=== PATIENT | female | born 1955 | race Hispanic/Latino ===

== ENCOUNTER 2020-04-12 19:53 | Inpatient (IN) | payer OTHER ==
[~2020-04-12] VITALS: Ht 154.9 cm; Wt 76.2 kg
[2020-04-12] MEDS ORDERED: ONDANSETRON HCL INJ 2MG/ML 2ML 2 MG/ML VIAL IV STA (19:55)
[2020-04-12] MEDS ORDERED: SODIUM CHLORIDE 0.9% 1000ML 1,000 ML IV ONE (20:00)
[2020-04-12 20:11] LABS: BASOPHILS % 0.4 % (0.0-1.0); EOSINOPHILS # (AUTO) 0.1 (0.0-0.4); EOSINOPHILS % 0.8 % (0.0-6.0); HEMATOCRIT 32.6 % (34.2-44.1); HEMOGLOBIN 12.1 g/dL (12.0-16.0); LYMPHOCYTES # (AUTO) 1.3 (1.0-3.2); LYMPHOCYTES % 16.8 % (18.0-39.1); MEAN CORPUSCULAR HEMOGLOBIN 28.9 pg (28-32); MEAN CORPUSCULAR HGB CONC 37.1 g/dL (31-35); MEAN CORPUSCULAR VOLUME 77.8 fL (81-99); MONOCYTES # (AUTO) 0.8 (0.2-0.8); MONOCYTES % 9.8 % (4.4-11.3); NEUTROPHILS # (AUTO) 5.7 (2.1-6.9); NEUTROPHILS % 71.4 % (38.7-80.0); PLATELET COUNT 373 x10e3/uL (140-360); RED BLOOD COUNT 4.19 x10e6/uL (3.6-5.1); RED CELL DISTRIBUTION WIDTH 12.4 % (11.7-14.4)
[2020-04-12 20:25] LABS: ALANINE AMINOTRANSFERASE 64 IU/L (0-55); ALBUMIN 4.2 g/dL (3.5-5.0); ALBUMIN/GLOBULIN RATIO 1.1 (0.8-2.0); ALKALINE PHOSPHATASE 91 IU/L (40-150); ANION GAP 15.7 mmol/L (8-16); BLOOD UREA NITROGEN < 5 mg/dL (7-26); CALCIUM 9.1 mg/dL (8.4-10.2); CARBON DIOXIDE 24 mmol/L (22-29); CHLORIDE 77 mmol/L (98-107); CREATINE KINASE 582 IU/L (29-168); CREATININE, SERUM 0.69 mg/dL (0.57-1.11); EST GLOMERULAR FILTRATION RATE > 60 ML/MIN (60-); GLUCOSE 108 mg/dL (74-118)
[2020-04-12 20:26] LABS: INR 0.97; PROTHROMBIN TIME 13.4 seconds (11.9-14.5)
[2020-04-12 20:27] LABS: PARTIAL THROMBOPLASTIN TIME 31.1 seconds (23.8-35.5)
[2020-04-12 20:31] LABS: BUN/CREATININE RATIO 7 (6-25)
--- NOTE | 2020-04-12 20:31 | NUR ---
ER MD AND PRIMARY RN NOTIFIED AND AWARE OF CRITICAL LAB VALUES, SODIUM 114 AND POTASSIUM 2.7.
[2020-04-12 20:32] LABS: POTASSIUM 2.7 mmol/L (3.5-5.1); SODIUM 114 mmol/L (136-145)
--- NOTE | 2020-04-12 20:33 | Emergency Department Note ---
History of Present Illnes History of Present Illness Chief Complaint: COVID PUI History of Present Illness This is a 64 year old female stated that she was tested 3x for covid 19 all resulted positive last done on April 08. Per pt. today she woke uncertain if she have syncopal episode at home with vomit next to her called daughter & contacted EMS. Pt was AAOx4, . Historian: [employer]/EMS Arrival Mode: [facility] Onset (how long ago): week(s) (3) Location: WEAK ALL OVER, COUGH Quality: COUGH, N/V ONCE TODAY, STATES WOKE UP WITH VOMIT ON HER, ?SYNCOPE Severity: moderate Onset quality: gradual Duration (how long): week(s) (3) Timing of current episode: constant Progression: waxing and waning Context: Reports recent illness (COVID +) Relieving factors: none Exacerbating factors: none Associated symptoms: Reports cough, Reports fever/chills, Reports loss of appetite, Reports nausea/vomiting, Reports shortness of breath, Reports syncope (UNCERTAIN), Reports weakness Treatments prior to arrival: none Past Medical/Family History Physician Review I have reviewed the patient's past medical and family history. Any updates have been documented here. Past Medical History Recent Fever: No Clinical Suspicion of Infectio: No New/Unexplained Change in Ment: No Past Medical History: None Past Surgical History: None Social History Smoking Cessation: Never Smoker Alcohol Use: None Any Illegal Drug Use: No Family History Family history of heart diseas: No Review of Systems Review of Systems Constitutional: Reports as per HPI EENTM: Reports no symptoms Cardiovascular: Reports no symptoms Respiratory: Reports as per HPI Gastrointestinal: Reports as per HPI Genitourinary: Reports no symptoms Musculoskeletal: Reports no symptoms Integumentary: Reports no symptoms Neurological: Reports as per HPI Psychological: Reports no symptoms Endocrine: Reports no symptoms Hematological/Lymphatic: Reports no symptoms Physical Exam Related Data Allergies: Coded Allergies: No Known Allergies (Unverified , 04/12/20) Triage Vital Signs Vital Signs Date Time Temp Pulse Resp B/P (MAP) Pulse Ox O2 Delivery O2 Flow Rate FiO2 04/12/20 20:10 97.6 69 16 127/75 100 Room Air Vital signs reviewed: Yes Physical Exam CONSTITUTIONAL Constitutional: Present well-developed, Present well-nourished; Absent distressed HENT HENT: Present normocephalic, Present atraumatic, Present oropharynx clear/moist, Present nose normal HENT L/R: Present left ext ear normal, Present right ext ear normal EYES Eyes: Reports PERRL, Reports conjunctivae normal NECK Neck: Present ROM normal PULMONARY Pulmonary: Present effort normal, Present breath sounds normal CARDIOVASCULAR Cardiovascular: Present regular rhythm, Present heart sounds normal, Present capillary refill normal, Present normal rate GASTROINTESTINAL Abdominal: Present soft, Present nontender, Present bowel sounds normal GENITOURINARY Genitourinary: Present exam deferred SKIN Skin: Present warm, Present dry MUSCULOSKELETAL Musculoskeletal: Present ROM normal NEUROLOGICAL Neurological: Present alert, Present oriented x 3, Present no gross motor or sensory deficits PSYCHOLOGICAL Psychological: Present mood/affect normal, Present judgement normal Results Laboratory Laboratory Laboratory Tests Test 04/12/20 21:45 04/12/20 19:57 04/12/20 19:55 Urine Color Straw (YELLOW) Urine Clarity Clear (CLEAR) Urine pH 7.5 (5 - 7) Urine Specific [place] 1.015 (1.010-1.025) Urine Protein Negative (NEGATIVE) Urine Glucose (UA) Negative (NEGATIVE) Urine Ketones 1+ (NEGATIVE) Urine Blood Negative (NEGATIVE) Urine Nitrite Negative (NEGATIVE) Urine Bilirubin Negative (NEGATIVE) Urine Urobilinogen 0.2 mg/dL (0.2 - 1) Urine Leukocyte Esterase Negative (NEGATIVE) Urine RBC 0-5 /HPF (0-5) Urine WBC 0-5 /HPF (0-5) Urine Epithelial Cells Few /LPF (NONE) Urine Bacteria Rare /HPF (NONE) White Blood Count 7.92 x10e3/uL (4.8-10.8) Red Blood Count 4.19 x10e6/uL (3.6-5.1) Hemoglobin 12.1 g/dL (12.0-16.0) Hematocrit 32.6 % (34.2-44.1) Mean Corpuscular Volume 77.8 fL (81-99) Mean Corpuscular Hemoglobin 28.9 pg (28-32) Mean Corpuscular Hemoglobin Concent 37.1 g/dL (31-35) Red Cell Distribution Width 12.4 % (11.7-14.4) Platelet Count 373 x10e3/uL (140-360) Neutrophils (%) (Auto) 71.4 % (38.7-80.0) Lymphocytes (%) (Auto) 16.8 % (18.0-39.1) Monocytes (%) (Auto) 9.8 % (4.4-11.3) Eosinophils (%) (Auto) 0.8 % (0.0-6.0) Basophils (%) (Auto) 0.4 % (0.0-1.0) Neutrophils # (Auto) 5.7 (2.1-6.9) Lymphocytes # (Auto) 1.3 (1.0-3.2) Monocytes # (Auto) 0.8 (0.2-0.8) Eosinophils # (Auto) 0.1 (0.0-0.4) Basophils # (Auto) 0.0 (0.0-0.1) Absolute Immature Granulocyte (auto 0.06 x10e3/uL (0-0.1) Sodium Level 114 mmol/L (136-145) Potassium Level 2.7 mmol/L (3.5-5.1) Chloride Level 77 mmol/L (98-107) Carbon Dioxide Level 24 mmol/L (22-29) Anion Gap 15.7 mmol/L (8-16) Blood Urea Nitrogen < 5 mg/dL (7-26) Creatinine 0.69 mg/dL (0.57-1.11) Estimat Glomerular Filtration Rate > 60 ML/MIN (60-) BUN/Creatinine Ratio 7 (6-25) Glucose Level 108 mg/dL (74-118) Calcium Level 9.1 mg/dL (8.4-10.2) Total Bilirubin 0.5 mg/dL (0.2-1.2) Aspartate Amino Transf (AST/SGOT) 56 IU/L (5-34) Alanine Aminotransferase (ALT/SGPT) 64 IU/L (0-55) Alkaline Phosphatase 91 IU/L (40-150) Creatine Kinase 582 IU/L (29-168) Creatine Kinase MB 4.20 ng/mL (0-5.0) Troponin I 0.005 ng/mL (0-0.300) Total Protein 8.1 g/dL (6.5-8.1) Albumin 4.2 g/dL (3.5-5.0) Globulin 3.9 g/dL (2.3-3.5) Albumin/Globulin Ratio 1.1 (0.8-2.0) Prothrombin Time 13.4 seconds (11.9-14.5) Prothromb Time International Ratio 0.97 Activated Partial Thromboplast Time 31.1 seconds (23.8-35.5) Laboratory Tests Test 04/12/20 19:57 04/12/20 19:55 Lab results reviewed: Yes Imaging Imaging results reviewed: Yes Impressions Procedure: [id number] DX/CHEST SINGLE (PORTABLE) Exam Date: 04/12/20 Exam Time: 2019 REPORT STATUS: Signed EXAMINATION: CHEST SINGLE (PORTABLE) INDICATION: Short of breath, Covid + COMPARISON: None FINDINGS: TUBES and LINES: None. LUNGS: Normal lung volumes. Subtle bilateral infrahilar haziness. PLEURA: No pleural effusion or pneumothorax. HEART AND MEDIASTINUM: The cardiomediastinal silhouette is unremarkable. BONES AND SOFT TISSUES: No acute osseous lesion. Soft tissues are unremarkable. UPPER ABDOMEN: No free air under the diaphragm. IMPRESSION: Subtle bilateral infrahilar haziness can be due to atelectasis or pneumonia. Signed by: Nicko Suresh DO on 04/12/2020 10:02 PM rocedure: [id number] CT/CT BRAIN WO Exam Date: 04/12/20 Exam Time: 2019 REPORT STATUS: Signed EXAMINATION: Head CT without contrast HISTORY: Near syncope, dizziness COMPARISON: None. TECHNIQUE: Helical axial images of the head were obtained. Reformatted coronal and sagittal images from the axial data. Dose modulation, iterative reconstruction, and/or weight based adjustment of the mA/kV was utilized to reduce the radiation dose to as low as reasonably achievable. Image quality: Motion/streaking artifact limits the evaluation of the skull base and posterior cranial fossa. FINDINGS: Parenchyma: 1. A few scattered axial cortical and matter hypodense foci, most likely age-appropriate. Minimal chronic microvascular ischemic changes. 2. No mass or hemorrhage. No CT evidence of acute territorial vascular insult. Extra-axial spaces:No abnormal density. No extra-axial fluid collections Brain volume: Normal for age. Ventricles: No hydrocephalus or displacement. Arteries: No density suggestive of thrombus. Dural sinuses: No abnormal density. Foramen magnum: No mass, Chiari malformation, or basilar invagination. Sella: No obvious mass. Paranasal/mastoid sinuses: Nonspecific near complete opacification of the right maxillary sinus. Otherwise clear. Skull/Scalp: No lytic or blastic lesions. No fractures. IMPRESSION: 1. No acute intracranial abnormalities, particularly no hemorrhage or infarcts. 2. Minimal age related chronic microvascular ischemic changes. 3. Nonspecific opacification of the right maxillary sinus. Signed by: Dr. Giles aLne M.D. on 04/12/2020 8:53 PM Dictated By: GILES LANE MD 52 Transcribed By: HELEN on 04/12/202052 COPY TO: EDU HERNANDEZ MD~ Procedures 12 Lead ECG Interpretation ECG Interpretation : ECG: ECG 1 Nursery Worker: Interpreted by ED physician Date: Apr 12, 2020 Time: 19:46 Rhythm: sinus rhythm Rate: normal BPM: 72 QRS axis: normal ST segments normal: Yes T waves normal: Yes Other findings: no other findings Clinical Impression: normal ECG Assessment & Plan Medical Decision Making MDM PT WITH COVID 19 PRESENTS WITH WEAKNESS, NEW ONSET VOMITING TIMES ONE TODAY, POSSIBLE SYNCOPE)PT WOKE UP WITH VOMIT ON HER). COUGH. OXYGEN SATURATION ON ROOM AIR 100% CBC, CMP, EKG, CARDIAC ENZYMES, CXR, CT BRAIN, UA ORDERED TO EVAL FOR MYOCARDIAL INFARCTION, ARRYTHMIA, ELECTROLYTE ABNORMALITY, DEHYDRATION, INTRACRANIAL ABNORMALITY, PNEUMONIA, UTI NS 1 LITER IV ORDERED ZOFRAN 4 MG IV ORDERED PT FOUND TO HAVE HYPONATREMIA AND HYPOKALEMIA, NS WITH 20 MEW KCL PER LITER ORDERED AT 100 CC/HOUR IV, 40 MEQ KCL PO ORDERED I SPOKE WITH DR MARTINEZ AND DR TOLBERT, ADMIT INPATIENT COVID UNIT ON TELEMETRY Assessment & Plan Final Impression: (1) COVID-19 (2) Hyponatremia (3) Hypokalemia Depart Disposition: ADMITTED Last Vital Signs Date Time Temp Pulse Resp B/P (MAP) Pulse Ox O2 Delivery O2 Flow Rate FiO2 04/12/20 20:10 97.6 69 16 127/75 100 Room Air Medications in the ED Ondansetron HCl 4 mg NOW STAT IV ; Start 04/12/20 at 19:55; Stop 04/12/20 at 19:56; Status UNV Sodium Chloride 1,000 ml @ 999 mls/hr Q1H1M ONCE IV ; Start 04/12/20 at 20:00; Stop 04/12/20 at 21:00 EDU HERNANDEZ MD Apr 12, 2020 20:32
[2020-04-12] MEDS ORDERED: POTASSIUM CHLORIDE 20 MEQ TAB CR PO STA (20:49)
--- NOTE | 2020-04-12 20:57 | Diagnostic Imaging Report ---
EXAMINATION: Head CT without contrast HISTORY: Near syncope, dizziness COMPARISON: None. TECHNIQUE: Helical axial images of the head were obtained. Reformatted coronal and sagittal images from the axial data. Dose modulation, iterative reconstruction, and/or weight based adjustment of the mA/kV was utilized to reduce the radiation dose to as low as reasonably achievable. Image quality: Motion/streaking artifact limits the evaluation of the skull base and posterior cranial fossa. FINDINGS: Parenchyma: 1. A few scattered axial cortical and matter hypodense foci, most likely age-appropriate. Minimal chronic microvascular ischemic changes. 2. No mass or hemorrhage. No CT evidence of acute territorial vascular insult. Extra-axial spaces:No abnormal density. No extra-axial fluid collections Brain volume: Normal for age. Ventricles: No hydrocephalus or displacement. Arteries: No density suggestive of thrombus. Dural sinuses: No abnormal density. Foramen magnum: No mass, Chiari malformation, or basilar invagination. Sella: No obvious mass. Paranasal/mastoid sinuses: Nonspecific near complete opacification of the right maxillary sinus. Otherwise clear. Skull/Scalp: No lytic or blastic lesions. No fractures. IMPRESSION: 1. No acute intracranial abnormalities, particularly no hemorrhage or infarcts. 2. Minimal age related chronic microvascular ischemic changes. 3. Nonspecific opacification of the right maxillary sinus. Signed by: Dr. Sydnie Lane M.D. on 04/12/2020 8:53 PM
[2020-04-12] MEDS ORDERED: POTASSIUM CHLORIDE 20 MEQ TAB CR PO ONE (21:12)
[2020-04-12] MEDS ORDERED: ONDANSETRON HCL INJ 2MG/ML 2ML 2 MG/ML VIAL ONE (21:13)
[2020-04-12] MEDS: KCL 20MEQ/.9 SOD CHL 1,000 ML IV SCH (21:20)
[2020-04-12 21:52] LABS: BILIRUBIN,URINE NEGATIVE (NEGATIVE); CLARITY,URINE CLEAR (CLEAR); COLOR,URINE STRAW (YELLOW); KETONES,URINE 1+ (NEGATIVE); LEUKOCYTE ESTERASE ,URINE NEGATIVE (NEGATIVE); NITRITE,URINE NEGATIVE (NEGATIVE); PROTEIN,URINE DIPSTICK NEGATIVE (NEGATIVE); URINE UROBILINOGEN 0.2 mg/dL (0.2 - 1)
[2020-04-12 22:03] LABS: BACTERIA,URINE RARE /HPF; EPITHELIAL CELLS,URINE FEW /LPF; RBC,URINE 0-5 /HPF (0-5); WBC,URINE (MAN) 0-5 /HPF (0-5)
--- NOTE | 2020-04-12 22:05 | Diagnostic Imaging Report ---
EXAMINATION: CHEST SINGLE (PORTABLE) INDICATION: Short of breath, Covid + COMPARISON: None FINDINGS: TUBES and LINES: None. LUNGS: Normal lung volumes. Subtle bilateral infrahilar haziness. PLEURA: No pleural effusion or pneumothorax. HEART AND MEDIASTINUM: The cardiomediastinal silhouette is unremarkable. BONES AND SOFT TISSUES: No acute osseous lesion. Soft tissues are unremarkable. UPPER ABDOMEN: No free air under the diaphragm. IMPRESSION: Subtle bilateral infrahilar haziness can be due to atelectasis or pneumonia. Signed by: Nicko Suresh DO on 04/12/2020 10:02 PM
[2020-04-12] MEDS ORDERED: ONDANSETRON HCL INJ 2MG/ML 2ML 2 MG/ML VIAL IV PRN (22:45)
[2020-04-12 23:05] VITALS: BP 132/78
[2020-04-12] MEDS ORDERED: AMLODIPINE BESY10 MG PO (23:09)
[2020-04-12] MEDS ORDERED: ASPIRIN81 MG (23:10)
[2020-04-12] MEDS ORDERED: LISINOPRIL-HCT1 EAC1 (23:12)
[2020-04-12] MEDS ORDERED: FLUOXETINE HCL10 MG PO (23:18)
[2020-04-13] VITALS: BP 132/78
[2020-04-13] MEDS: KCL 20MEQ/.9 SOD CHL 1,000 ML IV SCH (00:06)
[2020-04-13] MEDS ORDERED: CETIRIZINE HCL10 M1 PO (01:08)
[2020-04-13 04:00] VITALS: BP 119/78
[2020-04-13 05:04] LABS: ANION GAP 14.5 mmol/L (8-16); BLOOD UREA NITROGEN < 5 mg/dL (7-26); CARBON DIOXIDE 22 mmol/L (22-29); CHLORIDE 93 mmol/L (98-107); CREATININE, SERUM 0.69 mg/dL (0.57-1.11); EST GLOMERULAR FILTRATION RATE > 60 ML/MIN (60-); GLUCOSE 104 mg/dL (74-118); POTASSIUM 3.5 mmol/L (3.5-5.1); SODIUM 126 mmol/L (136-145)
[2020-04-13 05:15] LABS: BUN/CREATININE RATIO 7 (6-25)
--- NOTE | 2020-04-13 05:53 | NUR ---
H&P cc: Dizziness HPI: 64yoF, PCP , awoke to vomiting. Pt does not have SOB. Here found to have hyponatremia and electrolyte derangement. PMH: HTN, allergic rhinitis, mood d/o PSHx: none Allergies; see emr Fh/SH; ; no cigs meds; see MAR ROS: no f/c/s/D/cp/sob/skin rash/dizziness/vision changes/focal limb weakness v/s; revd PE tired appearing anicteric ns1s2 mod bs soft nt nd no e/t skin dry n. affect labs/meds revd A/P: Hyponatremia- rehydrate with saline; check Na q8; UA negative; VOmiting- antiemetics as needed; Dizziness- rehydrate HTN- hold HCTZ; cont amlodipine Mood d/o- hold SSRI ALlergic rhinitis- cont antihistamine Prop: scd DIpso: PT consult; Na improving; Norm Rodriguez MD, PhD.
[2020-04-13] MEDS ORDERED: ZOLPIDEM TARTRATE 5 MG TAB PO PRN (06:00)
[2020-04-13] MEDS ORDERED: ONDANSETRON HCL INJ 2MG/ML 2ML 2 MG/ML VIAL IV PRN (06:00)
[2020-04-13] MEDS ORDERED: DOCUSATE SODIUM 100 MG CAP PO PRN (06:00)
[2020-04-13] MEDS ORDERED: ACETAMINOPHEN 325 MG TAB PO PRN (06:00)
--- NOTE | 2020-04-13 06:10 | NUR ---
CALLED MD TOLBERT REGARDING CONSULT. LEFT MESSAGE WITH ANSWERING SERVICE.
--- NOTE | 2020-04-13 07:08 | NUR ---
REPORT GIVEN TO DAYSHIFT NURSE. RESTING IN BED. NO ADVERSE SIGNS OR SYMPTOMS. NO SIGNS IV INFILTRATION. BED LOCKED AND IN LOW POSITION. CALL LIGHT WITHIN REACH. BED ALARM ACTIVATED.
[2020-04-13 08:00] VITALS: BP 124/74
[2020-04-13 08:28] VITALS: BP 124/74
[2020-04-13] MEDS ORDERED: AMLODIPINE BESYLATE 10 MG TAB PO SCH (09:00)
[2020-04-13] MEDS ORDERED: NON-FORMULARY MEDICATION (Cetirizine Hcl 10 MG) PO SCH (09:00)
[2020-04-13] MEDS ORDERED: DOXYCYCLINE HYCLATE TABLET 100 MG TAB PO SCH (10:00)
--- NOTE | 2020-04-13 10:58 | Consultation ---
DATE OF CONSULTATION: Pulmonary Consultation HISTORY OF PRESENT ILLNESS: The patient of Dr. Norm Rodriguez, admitted through the emergency room with weakness, cough. Apparently, she wakened, vomit in her mouth and may have aspirated approximately 4 in the afternoon. ALLERGIES: SHE HAS NO KNOWN ALLERGIES. PAST MEDICAL HISTORY: She has a history of hypertension and depression. SOCIAL HISTORY: Recently . recently of COVID-19. She was born in [facility]. Housewife. Nonsmoker. No alcohol use. HOME MEDICATIONS: Had included lisinopril, fluoxetine, sertraline, aspirin, amlodipine, combination of lisinopril and hydrochlorothiazide. PAST SURGICAL HISTORY: No surgical history. FAMILY HISTORY: Positive for diabetes and COVID-19. PHYSICAL EXAMINATION: GENERAL: She is a well-developed white female, in no acute distress, complaining of beeping IV. VITAL SIGNS: Temperature 98, pulse 90, respirations 18, and blood pressure 124/74. HEAD: Normocephalic and atraumatic. NECK: Trachea midline. LUNGS: Clear. HEART: Regular rhythm. ABDOMEN: Nontender. EXTREMITIES: Nonedematous. IMPRESSION: Severe hyponatremia, 114, low sodium, elevated CPK and liver enzymes, hydrochlorothiazide-related hyponatremia, possible aspiration. Sodium is partially corrected. We will discontinue IV fluids at this time. Potassium is in place. We will check thyroid status. Continue to monitor. COVID-19 PCR is pending. Would begin prophylactic anticoagulation. She is afebrile. We will defer antibiotics at this point. Would suspect . Chest x-ray is reported showing vague infiltrates, presumably aspiration, less likely COVID pneumonia. We will await serologic studies in view of normal white count and absence of fever. Thank you for this kind referral. MD SHUBHAM Augustine/MODL /[id number]
--- NOTE | 2020-04-13 10:59 | Diagnostic Imaging Report ---
EXAM: CHEST SINGLE (PORTABLE) DATE: 04/13/2020 10:34 AM INDICATION: Covid-19, cough COMPARISON: 04/12/2020 FINDINGS/IMPRESSION: The trachea is midline. There are mildly prominent interstitial opacities present with a lower lung zone predominance, not significantly changed from the prior examination. Findings are nonspecific but can be seen in the setting of a atypical/viral infectious process. There is no evidence for lobar consolidation, pneumothorax, or significant pleural effusion. The cardiomediastinal silhouette is stable in appearance. No acute osseous abnormality is identified. Signed by: Dr. Rick Rojas MD on 04/13/2020 10:56 AM
[2020-04-13 11:48] VITALS: BP 119/67
[2020-04-13] MEDS ORDERED: ONDANSETRON HCL 4 MG ORAL DISINTEGRATING TAB PO PRN (12:30)
[2020-04-13 12:53] LABS: ANION GAP 16.7 mmol/L (8-16); BLOOD UREA NITROGEN < 5 mg/dL (7-26); CALCIUM 9.7 mg/dL (8.4-10.2); CARBON DIOXIDE 19 mmol/L (22-29); CHLORIDE 98 mmol/L (98-107); CREATININE, SERUM 0.76 mg/dL (0.57-1.11); EST GLOMERULAR FILTRATION RATE > 60 ML/MIN (60-); GLUCOSE 116 mg/dL (74-118); POTASSIUM 3.7 mmol/L (3.5-5.1); SODIUM 130 mmol/L (136-145)
--- NOTE | 2020-04-13 13:12 | NUR ---
Physical therapy screen completed. Patient is able to perform functional mobility/ walking with out assistance. Skilled PT services not indicated at this time. Thank you. Addendum: 04/13/20 at 1314 by Ronan tillman PT Amended: Links added.
[2020-04-13 13:18] LABS: BUN/CREATININE RATIO 7 (6-25)
[2020-04-13 15:35] VITALS: BP 124/68
--- NOTE | 2020-04-13 17:17 | NUR ---
Received discharge order from Dr. Rodriguez after assessed patient. Dr. Rodriguez gave a discharge order and instructions which was called to the daughter and discussed with the patient. Patient and daughter verbalized understanding. Patient's IV was removed and covered with a C/D/I dressing at 1710. Patient given all discharge paperwork. Awaiting patient's family member arrival to wheel her to the front. Addendum: 04/13/20 at 1802 by Chantelle Ferrari RN Patient wheeled to car at 1750. No issues or complaints.
--- NOTE | 2020-04-13 20:05 | Consultation ---
DATE OF CONSULTATION: REASON FOR CONSULTATION: COVID-19. HISTORY OF PRESENT ILLNESS: This patient who is a very pleasant 64-year-old female. She is coming to the hospital because she is feeling weak. She says she is so weak, she could stand up when she came here. She was hypotensive and hyponatremic. She is on some new medication hydrochlorothiazide, but the patient has COVID-19 back on March 04 and she was doing well. She never has shortness of breath or cough. Right now, there is no shortness of breath or cough, or whatsoever. REVIEW OF SYSTEMS: Totally negative. had fatigue when she first came here, but now she is doing better. LABORATORY DATA: When she first came, her sodium was 140, came up to 130; potassium was 2.7, came up to 3.7. Liver enzyme; AST 56 and ALT 64. PAST MEDICAL HISTORY: Hypertension. PAST SURGICAL HISTORY: Denies. ALLERGIES: NKA. SOCIAL HISTORY: There is no smoking, drug abuse, or alcohol abuse. FAMILY HISTORY: Unremarkable. PHYSICAL EXAMINATION: GENERAL: Currently alert, oriented. VITAL SIGNS: Stable, currently afebrile. HEENT: She is not icteric. NECK: Supple. CHEST: Clear. HEART: S1, S2. ABDOMEN: Soft. Bowel sounds present. EXTREMITIES: No edema. SKIN: No rash. IMPRESSION: 1. Hyponatremia, hypokalemia are due to medication. I told her to stop her hydrochlorothiazide. 2. The patient with COVID-19 for 30 days and she is not infectious anymore. The PCR could remain positive for prolonged time. There is no need to recheck the patient, does not need to be on home quarantine anymore. MD GHAZAL Cristobal/MICKEY /[id number]
[2020-04-13] MEDS ORDERED: ENOXAPARIN SOD INJ 40 MG/0.4 ML SYR SC SCH (21:00)
== END 2020-04-13 17:46 | disposition home or self-care (01) | DRG 177 ==
LOC: ER 20:05 → ERHOLD 22:56 → IMCU 23:50
PROVIDERS: ADMIT Internal Medicine; ATTEND Internal Medicine
DX: U07.1 COVID-19 (principal); J12.89 Other viral pneumonia; E87.1 Hypo-osmolality and hyponatremia; E87.6 Hypokalemia; I10 Essential (primary) hypertension; F39 Unspecified mood [affective] disorder; J30.9 Allergic rhinitis, unspecified; Z20.828 Contact with and (suspected) exposure to other viral communicable diseases; T50.2X5A Adverse effect of carbonic-anhydrase inhibitors, benzothiadiazides and other diuretics, initial encounter
CPT/HCPCS: 36415; 70450; 71045; 80048; 80053; 81001; 82550; 82553; 84443; 84484; 85025; 85610; 85730; 93005; 97139; 99284; J2405; J7030; U0002

== ENCOUNTER 2020-08-03 18:30 | Emergency (ER) | payer OTHER ==
[~2020-08-03] VITALS: Ht 154.9 cm; Wt 76.2 kg
[~2020-08-03 18:30] MED LIST: AMLODIPINE BESY10 MG PO; ASPIRIN81 MG; CETIRIZINE HCL10 M1 PO; FLUOXETINE HCL10 MG PO; LISINOPRIL-HCT1 EAC1
--- NOTE | 2020-08-03 19:17 | Emergency Department Note ---
History of Present Illnes History of Present Illness Chief Complaint: General Medicine Complaints History of Present Illness This is a 64 year old female female pt [id number] reports intermittent sob with minimal exertion and burning sensation to left foot, pts daughter states pt "might just want to get checked out because my sister in law has COVID." Pt was COVID + in March,; resp are even and unlabored, O2 sat ra 100% . Historian: Patient, Family Member Arrival Mode: Car Onset (how long ago): day(s) (2) Location: chest Quality: sob Radiation: Reports non-radiation Severity: mild Onset quality: sudden Duration (how long): day(s) (2) Timing of current episode: intermittent Progression: unchanged Chronicity: new Context: Denies recent illness, Denies recent surgery Relieving factors: none Exacerbating factors: movement Associated symptoms: Reports denies other symptoms Past Medical/Family History Physician Review I have reviewed the patient's past medical and family history. Any updates have been documented here. Past Medical History Recent Fever: No Clinical Suspicion of Infectio: No New/Unexplained Change in Ment: No Past Medical History: Hypertension, Hyperlipedemia Other Medical History: Depression Past Surgical History: None Social History Smoking Cessation: Never Smoker Alcohol Use: None Any Illegal Drug Use: No Review of Systems Review of Systems Constitutional: Reports no symptoms EENTM: Reports no symptoms Cardiovascular: Reports no symptoms Respiratory: Reports as per HPI Gastrointestinal: Reports no symptoms Genitourinary: Reports no symptoms Musculoskeletal: Reports no symptoms Integumentary: Reports no symptoms Neurological: Reports no symptoms Psychological: Reports no symptoms Endocrine: Reports no symptoms Hematological/Lymphatic: Reports no symptoms Physical Exam Related Data Allergies: Coded Allergies: No Known Allergies (Unverified , 04/12/20) Triage Vital Signs Vital Signs Date Time Temp Pulse Resp B/P (MAP) Pulse Ox O2 Delivery O2 Flow Rate FiO2 08/03/20 18:50 98.3 91 18 156/96 100 Room Air Vital signs reviewed: Yes Physical Exam CONSTITUTIONAL Constitutional: Present well-developed, Present well-nourished; Absent distressed HENT HENT: Present normocephalic, Present atraumatic, Present oropharynx clear/moist, Present nose normal HENT L/R: Present left ext ear normal, Present right ext ear normal EYES Eyes: Reports PERRL, Reports conjunctivae normal NECK Neck: Present ROM normal PULMONARY Pulmonary: Present effort normal, Present breath sounds normal CARDIOVASCULAR Cardiovascular: Present regular rhythm, Present heart sounds normal, Present capillary refill normal, Present normal rate GASTROINTESTINAL Abdominal: Present soft, Present nontender, Present bowel sounds normal GENITOURINARY Genitourinary: Present exam deferred SKIN Skin: Present warm, Present dry MUSCULOSKELETAL Musculoskeletal: Present ROM normal NEUROLOGICAL Neurological: Present alert, Present oriented x 3, Present no gross motor or sensory deficits PSYCHOLOGICAL Psychological: Present mood/affect normal, Present judgement normal Results Laboratory Laboratory Laboratory Tests Test 08/03/20 19:00 Lab results reviewed: Yes Imaging Imaging results reviewed: Yes Impressions Procedure: [id number] CT/CT CHEST W Exam Date: Exam Time: REPORT STATUS: Signed EXAM: CT Chest WITH contrast 08/03/2020 10:35 PM INDICATION: TO EVAL NODULE SEEN ON CXR COMPARISON: TECHNIQUE: Chest was scanned utilizing a multidetector helical scanner from the lung apex through the level of the adrenal glands with administration of IV contrast. Coronal and sagittal reformations were obtained. Routine protocol was performed. IV CONTRAST: 100 mL of Omnipaque 300 COMPLICATIONS: None FINDINGS: LINES/ TUBES: None. LUNGS AND AIRWAYS: The lungs are unremarkable. Airways are normal. No suspicious pulmonary nodules. Calcific granuloma in the right upper lobe PLEURA: The pleural spaces are clear. HEART AND MEDIASTINUM: The thyroid gland is normal. No mediastinal, hilar or axillary lymphadenopathy. The heart is normal in size. There is no pericardial effusion. UPPER ABDOMEN: Unremarkable. BONES: The visualized bony thorax is within normal limits. SOFT TISSUES: Unremarkable. IMPRESSION: No suspicious pulmonary nodules. No definite CT correlate to chest radiographic findings. Finding may relate to summation artifact Signed by: Michelle Nash MD on 08/03/2020 11:07 PM Dictated By: MICHELLE NASH MD 06 Transcribed By: HELEN on 08/03/202306 COPY TO: EDU HERNANDEZ MD~ Procedure: [id number] DX/CHEST SINGLE (PORTABLE) Exam Date: 08/03/20 Exam Time: 2019 REPORT STATUS: Signed EXAMINATION: CHEST SINGLE (PORTABLE) INDICATION: ^intermittent sob ^[id number] ^2019 COMPARISON: None FINDINGS: TUBES and LINES: None. LUNGS: Normal lung volumes. 1.6 cm left upper lobe nodule. No consolidations. PLEURA: No pleural effusion or pneumothorax. HEART AND MEDIASTINUM: The cardiomediastinal silhouette is unremarkable. BONES AND SOFT TISSUES: No acute osseous lesion. Soft tissues are unremarkable. UPPER ABDOMEN: No free air under the diaphragm. IMPRESSION: 1. 1.6 cm left upper lobe nodule. Recommend further evaluation with CT of the chest. 2. No focal consolidation, pleural effusion or pneumothorax. No pulmonary edema. Signed by: Sally Juan MD on 08/03/2020 9:23 PM Dictated By: SALLY JUAN MD 22 Transcribed By: HELEN on 08/03/202122 COPY TO: EDU HERNANDEZ MD~ Procedures 12 Lead ECG Interpretation ECG Interpretation : ECG: ECG 1 Data Acquisition Technician: Interpreted by ED physician Date: Aug 03, 2020 Time: 19:29 Rhythm: sinus rhythm Rate: normal BPM: 84 QRS axis: normal ST segments normal: Yes T waves normal: Yes Other findings: prolonged QTc interval Clinical Impression: abnormal ECG Assessment & Plan Medical Decision Making MDM pt with intermittent sob for past couple of days with exertion, denies chest pain cbc, cmp, bnp, cardiac enzymes, ekg, cxr ordered to eval for myocardial infarction, pneumonia, pulmonary edema, electrolyte abnormality PT FOUND TO HAVE HYPOKALEMIA POT 40 MEQ PO ORDERED NS WITH 20 MEQ/LITER TIMES 1 LITER IV ORDERED Reassessment Reassessment time: 23:31 Reassessment POTASSIUM NOW 3.9 Assessment & Plan Final Impression: (1) Dyspnea (2) Hypokalemia Depart Disposition: HOME, SELF-CARE Last Vital Signs Date Time Temp Pulse Resp B/P (MAP) Pulse Ox O2 Delivery O2 Flow Rate FiO2 08/03/20 18:50 98.3 91 18 156/96 100 Room Air Home Meds Reported Medications Cetirizine Hcl (CETIRIZINE HCL) 10 Mg Tab.chew, 10 MG PO DAILY 04/13/20 Fluoxetine Hcl (FLUOXETINE HCL) 10 Mg Capsule, 10 MG PO DAILY, #30 CAP 04/12/20 Aspirin (ASPIRIN) 81 Mg Tab.chew 04/12/20 Amlodipine Besylate (AMLODIPINE BESYLATE) 10 Mg Tablet, 10 MG PO DAILY, #30 TAB 04/12/20 EDU HERNANDEZ MD Aug 03, 2020 19:17
[2020-08-03 19:23] LABS: BASOPHILS % 0.3 % (0.0-1.0); EOSINOPHILS # (AUTO) 0.2 (0.0-0.4); EOSINOPHILS % 2.4 % (0.0-6.0); HEMATOCRIT 37.4 % (34.2-44.1); HEMOGLOBIN 12.9 g/dL (12.0-16.0); LYMPHOCYTES # (AUTO) 2.5 (1.0-3.2); LYMPHOCYTES % 25.3 % (18.0-39.1); MEAN CORPUSCULAR HEMOGLOBIN 29.1 pg (28-32); MEAN CORPUSCULAR HGB CONC 34.5 g/dL (31-35); MEAN CORPUSCULAR VOLUME 84.4 fL (81-99); MONOCYTES # (AUTO) 0.6 (0.2-0.8); MONOCYTES % 6.4 % (4.4-11.3); NEUTROPHILS # (AUTO) 6.5 (2.1-6.9); NEUTROPHILS % 65.2 % (38.7-80.0); PLATELET COUNT 420 x10e3/uL (140-360); RED BLOOD COUNT 4.43 x10e6/uL (3.6-5.1); RED CELL DISTRIBUTION WIDTH 12.7 % (11.7-14.4)
[2020-08-03 19:31] LABS: INR 0.92; PROTHROMBIN TIME 12.8 seconds (11.9-14.5)
[2020-08-03 19:32] LABS: PARTIAL THROMBOPLASTIN TIME 29.7 seconds (23.8-35.5)
[2020-08-03 19:39] LABS: ALANINE AMINOTRANSFERASE 28 IU/L (0-55); ALBUMIN 4.6 g/dL (3.5-5.0); ALKALINE PHOSPHATASE 122 IU/L (40-150); ANION GAP 15.7 mmol/L (8-16); BLOOD UREA NITROGEN 14 mg/dL (7-26); BUN/CREATININE RATIO 16 (6-25); CALCIUM 9.8 mg/dL (8.4-10.2); CARBON DIOXIDE 29 mmol/L (22-29); CHLORIDE 98 mmol/L (98-107); CREATINE KINASE 159 IU/L (29-168); CREATININE, SERUM 0.88 mg/dL (0.57-1.11); EST GLOMERULAR FILTRATION RATE > 60 ML/MIN (60-); GLUCOSE 104 mg/dL (74-118); SODIUM 140 mmol/L (136-145)
[2020-08-03 19:46] LABS: CLARITY,URINE CLEAR (CLEAR); COLOR,URINE YELLOW (YELLOW); LEUKOCYTE ESTERASE ,URINE NEGATIVE (NEGATIVE); NITRITE,URINE NEGATIVE (NEGATIVE); PROTEIN,URINE DIPSTICK NEGATIVE (NEGATIVE)
[2020-08-03 19:47] LABS: BACTERIA,URINE RARE /HPF; BILIRUBIN,URINE NEGATIVE (NEGATIVE); EPITHELIAL CELLS,URINE FEW /LPF; KETONES,URINE NEGATIVE (NEGATIVE); RBC,URINE 0-5 /HPF (0-5); URINE UROBILINOGEN 0.2 mg/dL (0.2 - 1); WBC,URINE (MAN) 0-5 /HPF (0-5)
[2020-08-03 19:49] LABS: POTASSIUM 2.7 mmol/L (3.5-5.1)
--- OUTSIDE RECORDS SUMMARY | 2020-08-03 19:54 | XMS REPORT | Continuity of Care Document ---
Author Author [facility] Organization [facility] Address [address] [place] [address] Phone Unavailable Care Team Providers Care Real Estate Sales Supervisor Name Role Phone NO, PCP PCP Unavailable CAMILLA MARTINEZ Attphys Unavailable CAMILLA MARTINEZ Admphys Unavailable Payers Payer Name Policy Type Policy Number Effective Date Expiration Date [id number] 2019 00:00: 00 [facility] Problems Condition Name Condition Details Condition Category Status Onset Date Resolution Date Last Treatment Date Treating Clinician Comments Source Infection due to severe acute respiratory syndrome coronavir us 2 (SARS-CoV-2) Problem Active [facility] Hyponatremia Problem Active [facility] Hypokalemia Problem Active [facility] Allergies, Adverse Reactions, Alerts Allergy Name Allergy Type Status Severity Reaction(s) Onset Date Inacti ve Date Treating Clinician Comments Source No Known Allergies DA Active U 2015-01-21 00:00:00 [facility] Social History Social Habit Start Date Stop Date Quantity Comments Source Sex Ass[birth year] At 1955 00:00:00 1955 00:[birth year]:00 Female [facility] Medications Ordered Medication Name Filled Medication Name Start Date Stop Da te Current Medication? Ordering Clinician Indication Dosage Frequency Signature (SIG) Comments Components Source Amlodipine Besylate Amlodipine Besylate Yes 10 Daily [facility] Aspirin Aspirin Yes [facility] Cetirizine Hcl Cetirizine Hcl Yes 10 Daily [facility] Fluoxetine Hcl Fluoxetine Hcl Yes 10 Daily [facility] Lisinopril/Hydrochlorothiazide (Lisinopril-Hctz 20-25 Mg Tab) 1 Each TABLET Lisinopril/Hydrochlorothiazide (Lisinopril-Hctz 20-25 Mg Tab) 1 Each TABLET 2020-04-13 00:00:00 No [facility] Vital Signs Vital Name Observation Time Observation Value Comments Source Body Temperature 2020-04-13 15:35:00 97.8 [degF] [facility] Weight 2020-04-12 23:05:00 168 [lb_av] [facility] BMI (Body Mass Index) 2020-04-12 23:05:00 31.7 kg/m2 [facility] Procedures Procedure Date / Time Performed Performing Clinician [facility] e Computed tomography of brain without radiopaque contrast 2020-03 00:00:00 [facility] Plan of Care Planned Activity Planned Date Details Comments Source Instructions Hypokalemia [facility] Instructions Hyponatremia [facility] Encounters Start Date/Time End Date/Time [facility] Source 2020-04-12 22:56:00 2020-04-13 17:46:00 Discharged Inpatient 1 CAMILLA MARTINEZ [facility] [id number] [facility] Results Test Description Test Time Test Comments Results Result Comments Source - US ABDOMEN COMPLETE 2020-05-02 08:47:00 Name : EMMANUELLE SHUKLA [facility] : 1955 Age/S: 64 / F [address] Unit #: [id number] Loc: [place] Fer[place] [address] Phys: Berry Kaiser MD Acct: [id number] Dis Date: Status: REG CLI PHONE #: [phone] Exam Date: 05/02/2020 08 FAX #: [phone] Reason: R94.5 EXAMS: CPT CODE: [id number] US ABDOMEN COMPLETE 06489 HISTORY: R94.5. COMPARISON: None available. Location: [facility]. The liver is hyperechogenic demonstrating patchy fibrofatty infiltration which limited evaluation for intrahepatic mass however no discrete lesions. Mild hepatomegaly at 18.5 cm in length. No intra or extrahepatic biliary ductal dilatation. CBD is normal at 2.6 mm. Main portal vein is patent with hepatopedal flow and normal spectral waveform. Gallbladder is without gallstones. No pericholecystic fluid or wall thickening. No ascites. Both kidneys are free from hydronephrosis and calyceal stones. Normal echogenicity and texture. Right kidney measured 11.4 cm in length. Left kidney measured 11 cm in length. Spleen is not enlarged at 13.8 cm in length. Visualized portions of the IVC, aorta and pancreas are normal however imaged incompletely. IMPRESSION: No gallstones. Fibrofatty infiltrated liver with mild hepatomegaly. Unremarkable spleen and kidneys. Lucy ctronically Signed by Hieu Antoine on 05/02/2020 at 0847 Reported and signed by: Ta Antoine M.D. CC: Cesar Reyes MD; Berry Kaiser MD Technologist: CORTNEY OLVERA RDMS [facility] Date/Time: 05/02/2020 (0847) t.SDR.[email or web address] Orig Print D/T: S: 05/02/2020 (0850) Probe: PAGE 1 Signed Report Serum or plasma sodium measurement (moles/volume) 2020-04-13 12:13:00 Test Item Sodium Level (test code = 2951-2) 130 136-145 [facility] potassium measurement (moles/volume)2020-04-13 12:13:00* Test Item Value Reference Range Interpretation Comments Potassium Level (test code = 2823-3) 3.7 3.5-5.1 [facility] or plasma chloride measurement (moles/volume)2020-04-13 12:13:00* Test Item Value Reference Range Interpretation Comments Chloride Level (test code = 2075-0) 98 98-107 [facility]ere[facility] or plasma carbon dioxide, total measurement (moles/volume)2020-04-13 12:13:00* Test Item Value Reference Range Interpretation Comments Carbon Dioxide Level (test code = 2028-9) 19 - [facility] or plasma anion cwv5630-90-52 12:13:00* Test Item Value Reference Range Interpretation Comments Anion Gap (test code = 69427-5) 16.7 8-16 [facility] or plasma urea nitrogen measurement (mass/volume)2020-04-13 12:13:00* Test Item Value Reference Range Interpretation Comments Blood Urea Nitrogen (test code = 3094-0) < 5 7-26 [facility]ere[facility] or plasma creatinine measurement (mass/volume)2020-04-13 12:13:00* Test Item Value Reference Range Interpretation Comments Creatinine (test code = 2160-0) 0.76 0.57-1.11 [facility]ere[facility] or plasma urea nitrogen/creatinine mass qejer0978-05-13 12:13:00* Test Item Value Reference Range Interpretation Comments BUN/Creatinine Ratio (test code = 3097-3) 7 6-25 [facility] CenterEstimated glomerular filtration rate (GFR) hrojrbqqocvtf4501-85-35 12:13:00* Test Item Value Reference Range Interpretation Comments Estimat Glomerular Filtration Rate (test code = 090375429) > 60 >60 Ranges were taken from the National Kidney Disease Education Program and the [facility] Foundation literature.Reference ranges:60 or greater: Bhawzm02-28 ( for 3 consecutive months): Chronic kidney disease 15 or less: Kidney failureConnally Memorial Medical CenterGlucose svyeydbtegu1683-45-22 12:13:00* Test Item Value Reference Range Interpretation Comments Glucose Level (test code = OEO2162) 116 74-118 [facility]ererum or plasma calcium measurement (mass/volume)2020-04-13 12:13:00* Test Item Value Reference Range Interpretation Comments Calcium Level (test code = 47356-1) 9.7 8.4-10.2 [facility] CenterCHE[facility]INGLE (PORTABLE)2020-04-13 10:54:00 [facility] [place] [address] Patient Name: EMMANUELLE SHUKLA MR #: [id number] : 1955 Age/Sex: 64/F Req #: [id number] [facility] Physician: CAMILLA MARTINEZ MD Ordered by: SHAUN SMITH MD Report #: [id number] Location: [facility] Room/Bed: [place] [address] Procedure: [id number] DX/CHEST SINGLE (P ORTABLE) Exam Date: 04/13/20 Exam Time: 1034 REPORT STATUS: Signed EXAM: CHEST SING LE (PORTABLE) DATE: 04/13/2020 10:34 AM INDICATION: Covid-19, cough COMPARISON: 04/12/2020 FINDINGS/IMPRESSION: The trachea is midline. There are mildly prominent interstitial opacities present with a lower lung zo ne predominance, not significantly changed from the prior examination. Finding s are nonspecific but can be seen in the setting of a atypical/viral infectiou s process. There is no evidence for lobar consolidation, pneumothorax, or s ignificant pleural effusion. The cardiomediastinal silhouette is stable in megan earance. No acute osseous abnormality is identified. Signed by: Dr. Rick Rojas MD on 04/13/2020 10:56 AM Dictated By: RICK [facility] Signed By: RICK ROJAS MD on 04/13/20 1056 Transcribed By: HELEN on 105 COPY TO: SHAUN SMITH MD Serum or plasma thyrotropin measurement by detection limit <= 0.005 miu/l (units/volume)2020-04-13 04:08:00 * Test Item Value Reference Range Interpretation Comments Thyroid Stimulating Hormone (TSH) (test code = 81529-4) 0.916 0.350-4.940 [facility] CenterFluoroscopic procedure less than one hour rinuexyz2962-77-62 22:59:00* Test Item Value Reference Range Interpretation Comments Coronavirus (PCR) (test code = Coronavirus (PCR)) DETECTED NOTD ETECTED SARS-COV2/RT-PCRResults are for the detection of SARS-COV-2 RNA. The SARS-COV-2 RNA is generally detectable in nasopharyngeal swab specimens during the acute ph ase of infection. Positive results are indicitive of active infection with SARS- COV-2; clinical correlation with patient history and other diagnostic informatio n is necessary to determine patient infection status. Positive results do not ru le out bacterial infection or co-infection with other viruses. The agent detecte d may not be the definite cause of the disease.The limit of detection for this a ssay is 250 copies/mLThe SARS-CoV-2 test is a rapid, real-time RT-PCR test inten ded for the qualitative detection of nucleic acid from SARS-CoV-2 in nasopharyng eal swab specimen collected from individuals suspected of COVID-19 by their [facility] provider. This test has not been Food and Drug Administration (FDA) clear ed or approved and has been authorized by FDA under an Emergency Use Authorizati on (EUA). This EUA will be effective until the declaration that circumstances ex ist justifying the authorization of the emergency use of in vitro diagnostic vale t for detection and or diagnosis of COVID-19 is terminated under section 564(b) of the Act, or the the EUA is revoked under 564(g) of the ACT.Testing performed by [address] [place], [place] [address]CHEST SINGLE (PORTABLE)2020-04-12 22:01:00 [facility] [address] [place] [address] Patient Name: EMMANUELLE SHUKLA MR #: [id number] : 1955 Age/Sex: 64/F Req #: [id number] Adm Physician: Ordered by: EDU HERNANDEZ MD Report #: [id number] Location: [facility] oom/Bed: Procedure: [id number] DX/CHEST SINGLE (PORTABLE) Exam Date: 04/12/20 Exam Time: 202 0 REPORT STATUS: Signed EXAMINAT ION: CHEST SINGLE (PORTABLE) INDICATION: Short of breath, Covid + COMPARISON: None FINDINGS: TUBES and LINES: None. LUNGS: Normal lung volumes. Subtle bilateral infrahilar haziness. PLE URA: No pleural effusion or pneumothorax. HEART AND MEDIASTINUM: The card iomediastinal silhouette is unremarkable. BONES AND SOFT TISSUES: No a cute osseous lesion. Soft tissues are unremarkable. UPPER ABDOMEN: No fr ee air under the diaphragm. IMPRESSION: Subtle bilateral infrahil ar haziness can be due to atelectasis or pneumonia. Signed by: Nicko youngblood DO on 04/12/2020 10:02 PM Dictated By: NICKO MACEDO DO Electronic ally Signed By: NICKO MACEDO DO on 04/12/202201 Transcribed By: HELEN on 04/12/202201 COPY TO: EDU HERNANDEZ MD Urine color gyjgdfbkazqho3565-61-01 21:45:00* Test Item Value Reference Range Interpretation Comments Urine Color (test code = 5778-6) STRAW YELLOW [facility] CenterUrine dlgygda6841-46-40 21:45:00* Test Item Value Reference Range Interpretation Comments Urine Clarity (test code = 59053-6) CLEAR CLEAR [facility] Centerpecific gravity of Urine by Test strip 2020-04-12 21:45:00* Test Item Value Reference Range Interpretation Comments Urine Specific Nelson (test code = 5811-5) 1.015 1.010-1.02 5 [facility] CenterUrine pH measurement by automated test crwiy9436-30-84 21:45:00* Test Item Value Reference Range Interpretation Comments Urine pH (test code = 12371-5) 7.5 5-7 [facility] CenterUrine leukocyte esterase detection by hzkwcuuw6418-68-98 21:45:00* Test Item Value Reference Range Interpretation Comments Urine Leukocyte Esterase (test code = 5799-2) NEGATIVE NEGATIVE [facility] CenterUrine nitrite lsaznsfng0543-98-69 21:45:00* Test Item Value Reference Range Interpretation Comments Urine Nitrite (test code = 78447-3) NEGATIVE NEGATIVE [facility] CenterUrine protein measurement by test strip (mass/volume)2020-04-12 21:45:00* Test Item Value Reference Range Interpretation Comments Urine Protein (test code = 5804-0) NEGATIVE NEGATIVE [facility] CenterUrine glucose egyfysbyr1325-77-38 21:45:00* Test Item Value Reference Range Interpretation Comments Urine Glucose (UA) (test code = 2349-9) NEGATIVE NEGATIVE [facility] CenterUrine ketones detection by automated test pkypb3707-56-11 21:45:00* Test Item Value Reference Range Interpretation Comments Urine Ketones (test code = 74275-3) 1+ NEGATIVE [facility] CenterUrine urobilinogen measurement by test strip (mass/volume)2020-04-12 21:45:00* Test Item Value Reference Range Interpretation Comments Urine Urobilinogen (test code = 89524-0) 0.2 0.2-1 [facility] CenterUrine total bilirubin measurement (mass/volume)2020-04-12 21:45:00* Test Item Value Reference Range Interpretation Comments Urine Bilirubin (test code = 1978-6) NEGATIVE NEGATIVE [facility] CenterUrine erythrocytes xgvdnmven5250-07-75 21:45:00* Test Item Value Reference Range Interpretation Comments Urine Blood (test code = 46010-6) NEGATIVE NEGATIVE [facility] CenterAutomated urine sediment leukocyte count by microscopy (number/high power field)2020-04-12 21:45:00* Test Item Value Reference Range Interpretation Comments Urine WBC (test code = 5821-4) 0-5 0-5 [facility] CenterErythrocytes detection in urine sediment by light aipocrdadh7967-08-89 21:45:00* Test Item Value Reference Range Interpretation Comments Urine RBC (test code = 24369-7) 0-5 0-5 [facility] CenterBacteria detection in urine sediment by light vvguikjudn3671-83-34 21:45:00* Test Item Value Reference Range Interpretation Comments Urine Bacteria (test code = 47421-1) RARE NONE [facility] CenterEpithelial cells detection in urine sediment by light hbtmvqrqmj8101-71-61 21:45:00* Test Item Value Reference Range Interpretation Comments Urine Epithelial Cells (test code = 67966-4) FEW NONE [facility] CenterCT BRAIN NK3149-83-62 20:50:00 [facility] [address] [place] [address] Patient Name: EMMANUELLE SHUKLA MR #: [id number] : 1955 Age/Sex: 64/F Req #: [id number] Adm Physician: Ordered by: EDU HERNANDEZ MD Report #: [id number] Location: [facility]/Bed: Procedure: [id number] CT/CT BRA IN WO Exam Date: 04/12/20 Exam Time: 2019 REPORT STATUS: Signed EXAMINATION: Head CT without contrast HISTORY: Near syncope, dizziness COMPARISON: None. TE CHNIQUE: Helical axial images of the head were obtained. Reformatted coronal and sagittal images from the axial data. Dose modulation, iterative reconstru ction, and/or weight based adjustment of the mA/kV was utilized to reduce the radiation dose to as low as reasonably achievable. Image quality: Motion/strea julita artifact limits the evaluation of the skull base and posterior cranial fo ssa. FINDINGS: Parenchyma: 1. A few scattered axial cortical and matter hypodense foci, most likely age-appropriate. Minimal chronic microv ascular ischemic changes. 2. No mass or hemorrhage. No CT evidence of acute t erritorial vascular insult. Extra-axial spaces:No abnormal dens ity. No extra-axial fluid collections Brain volume: Normal for age. Ventricles: No hydrocephalus or displacement. Arteries: No density suggestive of thrombus. Dural sinuses: No abnormal density. Fora men magnum: No mass, Chiari malformation, or basilar invagination. Sella : No obvious mass. Paranasal/mastoid sinuses: Nonspecific near complete opacification of the right maxillary sinus. Otherwise clear. Skull/Sc alp: No lytic or blastic lesions. No fractures. IMPRESSION: 1. No a cute intracranial abnormalities, particularly no hemorrhage or infarcts. 2. Minimal age related chronic microvascular ischemic changes. 3. Nonspec ific opacification of the right maxillary sinus. Signed by: Dr. Giles Lane M.D. on 04/12/2020 8:53 PM Dictated By: GILES LANE MD Electronically S igned By: GILES LANE MD on 04/12/202052 Transcribed By: HELEN on 04/12/20 2 053 COPY TO: EDU HERNANDEZ MD Blood leukocytes automated count (number/volume)2020-04-12 19:57:00* Test Item Value Reference Range Interpretation Comments White Blood Count (test code = 6690-2) 7.92 4.8-10.8 [facility] CenterBlood erythrocytes automated count (number/volume)2020-04-12 19:57:00* Test Item Value Reference Range Interpretation Comments Red Blood Count (test code = 789-8) 4.19 3.6-5.1 [facility] CenterBlood hemoglobin measurement (moles/volume)2020-04-12 19:57:00* Test Item Value Reference Range Interpretation Comments Hemoglobin (test code = 19737-4) 12.1 12.0-16.0 [facility] CenterAutomated blood hematocrit (volume fraction)2020-04-12 19:57:00* Test Item Value Reference Range Interpretation Comments Hematocrit (test code = 4544-3) 32.6 34.2-44.1 [facility] CenterAutomated erythrocyte mean corpuscular mrhjht7636-36-92 19:57:00* Test Item Value Reference Range Interpretation Comments Mean Corpuscular Volume (test code = 787-2) 77.8 81-99 [facility] CenterAutomated erythrocyte mean corpuscular hemoglobin (mass per erythrocyte)2020-04-12 19:57:00* Test Item Value Reference Range Interpretation Comments Mean Corpuscular Hemoglobin (test code = 785-6) 28.9 28-32 [facility] CenterAutomated erythrocyte mean corpuscular hemoglobin concentration measurement (mass/volume)2020-04-12 19:57:00* Test Item Value Reference Range Interpretation Comments Mean Corpuscular Hemoglobin Concent (test code = 786-4) 37.1 31-35 [facility] CenterRDW UxgOh-Mlu0816-67-28 19:57:00* Test Item Value Reference Range Interpretation Comments Red Cell Distribution Width (test code = 85097-7) 12.4 11.7 -14.4 [facility] CenterAutomated blood platelet count (count/volume)2020-04-12 19:57:00* Test Item Value Reference Range Interpretation Comments Platelet Count (test code = 777-3) 373 140-360 [facility] CenterAutomated blood segmented neutrophil count as percentage of total jyvlppccbe4610-79-31 19:57:00* Test Item Value Reference Range Interpretation Comments Neutrophils (%) (Auto) (test code = 52909-8) 71.4 38.7-80.0 [facility] CenterAutomated blood lymphocyte count as percentage ot total rkjlfpncam7082-02-86 19:57:00* Test Item Value Reference Range Interpretation Comments Lymphocytes (%) (Auto) (test code = 736-9) 16.8 18.0-39.1 [facility] CenterAutomated blood monocyte count as percentage of total rlxfkvcqiy4482-39-65 19:57:00* Test Item Value Reference Range Interpretation Comments Monocytes (%) (Auto) (test code = 5905-5) 9.8 4.4-11.3 [facility] CenterAutomated blood eosinophil count as percentage of total vcshxcaisu3185-00-52 19:57:00* Test Item Value Reference Range Interpretation Comments Eosinophils (%) (Auto) (test code = 713-8) 0.8 0.0-6.0 [facility] CenterAutomated blood basophil count as percentage of total bdlfrlrkgo9982-21-23 19:57:00* Test Item Value Reference Range Interpretation Comments Basophils (%) (Auto) (test code = 706-2) 0.4 0.0-1.0 [facility] CenterFluoroscopic procedure less than one hour nxydbhaj3157-34-23 19:57:00* Test Item Value Reference Range Interpretation Comments IM GRANULOCYTES % (test code = IM GRANULOCYTES %) 0.8 0.0- 1.0 [facility] CenterAutomated blood neutrophil count 2020-04-12 19:57:00* Test Item Value Reference Range Interpretation Comments Neutrophils # (Auto) (test code = 751-8) 5.7 2.1-6.9 [facility] CenterBlood lymphocytes count (number/volume) 2020-04-12 19:57:00* Test Item Value Reference Range Interpretation Comments Lymphocytes # (Auto) (test code = 40218-7) 1.3 1.0-3.2 [facility] CenterBlsleepy eye medical center monocytes automated count (number/volume)2020-04-12 19:57:00* Test Item Value Reference Range Interpretation Comments Monocytes # (Auto) (test code = 742-7) 0.8 0.2-0.8 [facility] CenterAutomated blood eosinophil count 2020-04-12 19:57:00* Test Item Value Reference Range Interpretation Comments Eosinophils # (Auto) (test code = 711-2) 0.1 0.0-0.4 [facility] CenterAutomated blood basophil count (count/volume)2020-04-12 19:57:00* Test Item Value Reference Range Interpretation Comments Basophils # (Auto) (test code = 704-7) 0.0 0.0-0.1 [facility] CenterFluoroscopic procedure less than one hour crocutcv6061-26-95 19:57:00* Test Item Value Reference Range Interpretation Comments Absolute Immature Granulocyte (auto (vale t code = Absolute Immature Granulocyte (auto) 0.06 0-0.1 [facility] Centererum or plasma total bilirubin measurement (mass/volume)2020-04-12 19:57:00* Test Item Value Reference Range Interpretation Comments Total Bilirubin (test code = 1975-2) 0.5 0.2-1.2 [facility] CenterFluoroscopic procedure less than one hour kpwkmtgw0553-21-03 19:57:00* Test Item Value Reference Range Interpretation Comments Aspartate Amino Transf (AST/SGOT) (test code = Aspartate Amino Transf (AST/SGOT)) 56 5-34 [facility] Centererum or plasma alanine aminotransferase measurement (enzymatic activity/volume)2020-04-12 19:57:00* Test Item Value Reference Range Interpretation Comments Alanine Aminotransferase (ALT/SGPT) (test code = 1742-6) 64 0-55 [facility] Centererum or plasma protein measurement (mass/volume)2020-04-12 19:57:00* Test Item Value Reference Range Interpretation Comments Total Protein (test code = 2885-2) 8.1 6.5-8.1 [facility] Centererum or plasma albumin measurement (mass/volume)2020-04-12 19:57:00* Test Item Value Reference Range Interpretation Comments Albumin (test code = 1751-7) 4.2 3.5-5.0 [facility] CenterPlasma globulin measurement (mass/volume) 2020-04-12 19:57:00* Test Item Value Reference Range Interpretation Comments Globulin (test code = 68689-0) 3.9 2.3-3.5 [facility] Centererum or plasma albumin/globulin mass mvgpq8895-18-32 19:57:00* Test Item Value Reference Range Interpretation Comments Albumin/Globulin Ratio (test code = 1759-0) 1.1 0.8-2.0 [facility] Centererum or plasma alkaline phosphatase measurement (enzymatic activity/volume)2020-04-12 19:57:00* Test Item Value Reference Range Interpretation Comments Alkaline Phosphatase (test code = 6768-6) 91 40-150 [facility] Centererum or plasma creatine kinase measurement (enzymatic activity/volume)2020-04-12 19:57:00* Test Item Value Reference Range Interpretation Comments Creatine Kinase (test code = 2157-6) 582 29168 [facility] Centererum or plasma creatine kinase MB measurement (mass/volume)2020-04-12 19:57:00* Test Item Value Reference Range Interpretation Comments Creatine Kinase MB (test code = 37741-3) 4.20 0-5.0 [facility] CenterTroponin I measurement by highly sensitive enzyme jzbgvsvxgmb5516-26-51 19:57:00* Test Item Value Reference Range Interpretation Comments Troponin I (test code = 64686-7) 0.005 0-0.300 [facility] CenterProthrombin time (PT) in platelet poor plasma by coagulation jhiac7439-81-17 19:55:00* Test Item Value Reference Range Interpretation Comments Prothrombin Time (test code = 5902-2) 13.4 11.9-14.5 [facility] by Coagulation [id number] 19:55:00* Test Item Value Reference Range Interpretation Comments Prothromb Time International Ratio (test code = 6301-6) 0.97 Oral Anticoagulant Therapy INR Values:1. Low Intensity Therapy 1.5 - 2.02 . Moderate Intensity Therapy 2.0 - 3.03. High Intensity Therapy(1) 2.5 - 3. 54. High Intensity Therapy(2) 3.0 - 4.05. Panic Value INR > 5.0 [facility] CenterAct[facility] partial thromboplastin time (aPTT) in platelet poor plasma by coagulation [id number] 19:55:00* Test Item Value Reference Range Interpretation Comments Activated Partial Thromboplast Time (test code = 86544-9) 31.1 23.8-35.5 [facility]
--- NOTE | 2020-08-03 19:55 | NUR ---
dr trujillo informed of k+ level 2.7.
[2020-08-03] MEDS ORDERED: POTASSIUM CHLORIDE 20 MEQ TAB CR PO STA (20:07)
[2020-08-03] MEDS ORDERED: POTASSIUM CHLORIDE 20MEQ/15ML UDC PO ONE (20:15)
[2020-08-03] MEDS ORDERED: KCL 20MEQ/.9 SOD CHL 1,000 ML IV ONE ×2 (20:15→20:18)
[2020-08-03] MEDS ORDERED: POTASSIUM CHLORIDE 20MEQ/15ML UDC ONE (20:18)
--- NOTE | 2020-08-03 21:26 | Diagnostic Imaging Report ---
EXAMINATION: CHEST SINGLE (PORTABLE) INDICATION: ^intermittent sob ^[id number] ^2019 COMPARISON: None FINDINGS: TUBES and LINES: None. LUNGS: Normal lung volumes. 1.6 cm left upper lobe nodule. No consolidations. PLEURA: No pleural effusion or pneumothorax. HEART AND MEDIASTINUM: The cardiomediastinal silhouette is unremarkable. BONES AND SOFT TISSUES: No acute osseous lesion. Soft tissues are unremarkable. UPPER ABDOMEN: No free air under the diaphragm. IMPRESSION: 1. 1.6 cm left upper lobe nodule. Recommend further evaluation with CT of the chest. 2. No focal consolidation, pleural effusion or pneumothorax. No pulmonary edema. Signed by: Jose Gabriel MD on 08/03/2020 9:23 PM
[2020-08-03] MEDS ORDERED: SODIUM CHLORIDE 0.9% 50ML 50 ML ONE (23:07)
[2020-08-03] MEDS ORDERED: IOPAMIDOL 370 MG/ML 200 ML INFUS..BTL INJ ONE (23:07)
--- NOTE | 2020-08-03 23:10 | Diagnostic Imaging Report ---
EXAM: CT Chest WITH contrast 08/03/2020 10:35 PM INDICATION: TO EVAL NODULE SEEN ON CXR COMPARISON: TECHNIQUE: Chest was scanned utilizing a multidetector helical scanner from the lung apex through the level of the adrenal glands with administration of IV contrast. Coronal and sagittal reformations were obtained. Routine protocol was performed. IV CONTRAST: 100 mL of Omnipaque 300 COMPLICATIONS: None FINDINGS: LINES/ TUBES: None. LUNGS AND AIRWAYS: The lungs are unremarkable. Airways are normal. No suspicious pulmonary nodules. Calcific granuloma in the right upper lobe PLEURA: The pleural spaces are clear. HEART AND MEDIASTINUM: The thyroid gland is normal. No mediastinal, hilar or axillary lymphadenopathy. The heart is normal in size. There is no pericardial effusion. UPPER ABDOMEN: Unremarkable. BONES: The visualized bony thorax is within normal limits. SOFT TISSUES: Unremarkable. IMPRESSION: No suspicious pulmonary nodules. No definite CT correlate to chest radiographic findings. Finding may relate to summation artifact Signed by: Michael Stewart MD on 08/03/2020 11:07 PM
[2020-08-03 23:31] VITALS: BP 106/81
== END 2020-08-04 00:01 | disposition home or self-care (01) ==
LOC: ER 19:51
DX: R06.00 Dyspnea, unspecified (principal); E87.6 Hypokalemia; I10 Essential (primary) hypertension; E78.5 Hyperlipidemia, unspecified; F32.9 Major depressive disorder, single episode, unspecified
CPT/HCPCS: 36415; 71045; 71260; 80053; 81001; 82550; 82553; 83880; 84132; 84484; 85025; 85610; 85730; 93005; 99284; Q9967

== ENCOUNTER 2020-08-09 22:17 | Emergency (ER) | payer OTHER ==
[~2020-08-09] VITALS: Ht 154.9 cm; Wt 76.2 kg
--- OUTSIDE RECORDS SUMMARY | 2020-08-09 22:33 | XMS REPORT | Continuity of Care Document ---
Author Author [facility] Organization [facility] Address [address] [place] [address] Phone Unavailable Care Team Providers Care Acid Etch Operator Name Role Phone Hieu MASON [facility] PCP Jennifer HERNANDEZ Attphys Unavailable CAMILLA MARTINEZ Attphys Unavailable CAMILLA MARTINEZ Admphyanuradha Unavailable Payers Payer Name Policy Type Policy Number Effective Date Expiration Date Anuradha Muhammad [facility] [id number] 2019 00:00: 00 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 Hypokalemia Problem Active [facility] Dyspnea Problem Active [facility] Allergies, Adverse Reactions, Alerts Allergy Name Allergy Type Status Severity Reaction(s) Onset Date Inacti ve Date Treating Clinician Comments Source No Known Allergies DA Active U 2015-01-21 00:00:00 [facility] Social History Social Habit Start Date Stop Date Quantity Comments Source Sex Assigned At 1955 00:00:00 1955 00:00:[address] [facility] Medications Ordered Medication Name Filled Medication Name Start Date Stop Da te Current Medication? Ordering Clinician Indication Dosage Frequency Signature (SIG) Comments Components Source Amlodipine Besylate Amlodipine Besylate Yes 10 Daily [facility] Aspirin Aspirin Yes [facility] Cetirizine Hcl Cetirizine Hcl Yes 10 Daily [facility] Fluoxetine Hcl Fluoxetine Hcl Yes 10 Daily [facility] Lisinopril/Hydrochlorothiazide (Lisinopril-Hctz 20-25 Mg Tab) 1 Each TABLET Lisinopril/Hydrochlorothiazide (Lisinopril-Hctz 20-25 Mg Tab) 1 Each TABLET 2020-04-13 00:00:00 No [facility] Vital Signs Vital Name Observation Time Observation Value Comments Source Body Temperature 2020-08-03 23:31:00 98.4 [degF] [facility] Heart Rate 2020-08-03 23:31:00 84 /min [facility] Respiratory rate 2020-08-03 23:31:00 21 /min [facility] BP Systolic 2020-08-03 23:31:00 106 mm[Hg] [facility] BP Diastolic 2020-08-03 23:31:00 81 mm[Hg] [facility] Oxygen saturation by Pulse oximetry 2020-08-03 23:31:00 100 /min [facility] Weight 2020-08-03 18:50:00 168 [lb_av] [facility] BMI (Body Mass Index) 2020-08-03 18:50:00 31.7 kg/m2 [facility] Body Temperature 2020-04-13 15:35:00 97.8 [degF] [facility] Weight 2020-04-12 23:05:00 168 [lb_av] [facility] BMI (Body Mass Index) 2020-04-12 23:05:00 31.7 kg/m2 [facility] Procedures Procedure Date / Time Performed Performing Clinician [facility] e Computed tomography of chest with contrast 2020-08-03 00:00:00 [facility] Computed tomography of brain without radiopaque contrast 2020-03 00:00:00 [facility] Plan of Care Planned Activity Planned Date Details Comments Source Instructions Dyspnea [facility] Instructions Hypokalemia [facility] Encounters Start Date/Time End Date/Time En[facility] ID Source 2020-04-12 23:56:00 2020-04-13 18:46:00 Discharged Inpatient 1 CAMILLA MARTINEZ [facility] [id number] [facility] Results Test Description Test Time Test Comments Results Result Comments Source Serum or plasma potassium measurement (moles/volume) 2020-07 23:02:00 Test Item Potassium Level (test code = 2823-3) 3.9 mmol/L 3.5-5.1 [facility] [id number] 22:56:00 [facility] : 1955 Sex: F [facility] [address] [place] [address] Patient Name: EMMANUELLE SHUKLA MR #: [id number] : 1955 Age/Sex: 64/F Req #: [id number] Adm Physician: Caitlin amezquita by: EDU HERNANDEZ MD Report #: [id number] Location: ER Room/Bed: Procedure: [id number] CT/CT CHEST W Exam Date: Exam Time: 2234 REPORT STATUS: Signed EXAM: CT Chest WITH contrast 08/03/2020 10:35 PM INDICATION: TO EVAL NODULE SEEN ON CXR COMPARISON: TECHNIQUE: Chest was scanned utilizing a multidetector helical scanner from the lung apex through the level of the adrenal glands with administration of IV contrast. Coronal and sagittal reformations were obtained. Routine protocol was performe d. IV CONTRAST: 100 mL of Omnipaque 300 COMPLICATIONS: None FIN DINGS: LINES/ TUBES: None. LUNGS AND AIRWAYS: The lungs are unremarka ble. Airways are normal. No suspicious pulmonary nodules. Calcific granuloma in the right upper lobe PLEURA: The pleural spaces are clear. HEART AND MEDIASTINUM: The thyroid gland is normal. No mediastinal, hilar or axill aida lymphadenopathy. The heart is normal in size. There is no pericardial eff usion. UPPER ABDOMEN: Unremarkable. BONES: The visualized bony th orax is within normal limits. SOFT TISSUES: Unremarkable. IMPRESSION: No suspicious pulmonary nodules. No definite CT correlate to chest radiograph ic findings. Finding may relate to summation artifact Signed by: Sumit Stewart MD on 08/03/2020 11:07 PM Dictated By: MICHELLE STEWART MD Lucy ctronically Signed By: MICHELLE STEWART MD on 08/03/202306 Transcribed By: YADY Mercado on 08/03/202306 COPY TO: EDU HERNANDEZ MD CHEST SINGLE (PORTABLE)2020-08-03 21:21:00 [facility] : 1955 Sex: F [facility] [address] [place], [place] [address] Patient Name: EMMANUELLE SHUKLA MR #: [id number] : 1955 Age/Sex: 64/F Req #: [id number] Adm Physician: Caitlin turkd by: EDU HERNANDEZ MD Report #: [id number] Location: ER Room/Bed: Procedure: [id number] DX/CHEST SINGLE (PORTABLE) Exam Date: 08/03/20 Exam Time: 2019 REPORT STATUS: Signed EXAMINATION: CHEST SINGLE (PORT ABLE) INDICATION: intermittent sob [id number] CO MPARISON: None FINDINGS: TUBES and LINES: None. LUNGS: Normal lung volumes. 1.6 cm left upper lobe nodule. No consolidations. PLEURA: No pleural effusion or pneumothorax. HEART AND MEDIASTINUM: The cardiomediastinal silhouette is unremarkable. BONES AND SOFT TISSUES: No acute osseous lesion. Soft tissues are unremarkable. UPPER ABDOMEN: No free air under the diaphragm. IMPRESSION: 1. 1.6 cm left uppe r lobe nodule. Recommend further evaluation with CT of the chest. 2. No foc al consolidation, pleural effusion or pneumothorax. No pulmonary edema. Signed by: Sally Juan MD on 08/03/2020 9:23 PM Dictated By: SALLY JUAN MD 22 Transcr ibed By: HELEN on 08/03/202122 COPY TO: EDU HERNANDEZ MD Urine color [id number] 19:03:00* Test Item Value Reference Range Interpretation Comments Urine Color (test code = 5778-6) YELLOW YELLOW [facility] HospitalUrine [id number] 19:03:00* Test Item Value Reference Range Interpretation Comments Urine Clarity (test code = 61143-5) CLEAR CLEAR [facility] Urine by Test strip 2020-08-03 19:03:00* Test Item Value Reference Range Interpretation Comments Urine Specific Norris (test code = 5811-5) 1.020 1.010-1.02 5 [facility] HospitalUrine pH measurement by automated test [id number] 19:03:00* Test Item Value Reference Range Interpretation Comments Urine pH (test code = 42229-8) 7 5-7 [facility] HospitalUrine leukocyte esterase detection by rarpwwpt3581-88-47 19:03:00* Test Item Value Reference Range Interpretation Comments Urine Leukocyte Esterase (test code = 5799-2) NEGATIVE NEGATIVE [facility] HospitalUrine nitrite mstlehvrh6999-93-03 19:03:00* Test Item Value Reference Range Interpretation Comments Urine Nitrite (test code = 24354-5) NEGATIVE NEGATIVE [facility] HospitalUrine protein measurement by test strip (mass/volume)2020-08-03 19:03:00* Test Item Value Reference Range Interpretation Comments Urine Protein (test code = 5804-0) NEGATIVE NEGATIVE [facility] HospitalUrine glucose aalgexghw4678-35-63 19:03:00* Test Item Value Reference Range Interpretation Comments Urine Glucose (UA) (test code = 2349-9) NEGATIVE NEGATIVE [facility] HospitalUrine ketones detection by automated test [id number] 19:03:00* Test Item Value Reference Range Interpretation Comments Urine Ketones (test code = 43441-4) NEGATIVE NEGATIVE [facility] HospitalUrine urobilinogen measurement by test strip (mass/volume)2020-08-03 19:03:00* Test Item Value Reference Range Interpretation Comments Urine Urobilinogen (test code = 73369-4) 0.2 mg/dL 0.2-1 [facility] HospitalUrine total bilirubin measurement (mass/volume)2020-08-03 19:03:00* Test Item Value Reference Range Interpretation Comments Urine Bilirubin (test code = 1978-6) NEGATIVE NEGATIVE [facility] HospitalUrine erythrocytes pjqbzrdlr7506-35-10 19:03:00* Test Item Value Reference Range Interpretation Comments Urine Blood (test code = 59729-5) NEGATIVE NEGATIVE [facility] HospitalAutomated urine sediment leukocyte count by microscopy (number/high power field)2020-08-03 19:03:00* Test Item Value Reference Range Interpretation Comments Urine WBC (test code = 5821-4) 0-5 /[HPF] 0-5 [facility] HospitalErythrocytes detection in urine sediment by light ylpaopzjfg9936-08-59 19:03:00* Test Item Value Reference Range Interpretation Comments Urine RBC (test code = 35061-7) 0-5 /[HPF] 0-5 [facility] HospitalBacteria detection in urine sediment by light qthcwlywps9408-34-94 19:03:00* Test Item Value Reference Range Interpretation Comments Urine Bacteria (test code = 25375-1) RARE /[HPF] NONE [facility] HospitalEpithelial cells detection in urine sediment by light eygpjsivci9192-85-93 19:03:00* Test Item Value Reference Range Interpretation Comments Urine Epithelial Cells (test code = 13735-7) FEW /[LPF] NONE [facility] HospitalBlood leukocytes automated count (number/volume)2020-08-03 19:00:00* Test Item Value Reference Range Interpretation Comments White Blood Count (test code = 6690-2) 9.90 10*3/uL 4.8-10.8 [facility] HospitalBlood erythrocytes automated count (number/volume)2020-08-03 19:00:00* Test Item Value Reference Range Interpretation Comments Red Blood Count (test code = 789-8) 4.43 10*6/mL 3.6-5.1 [facility] HospitalBlood hemoglobin measurement (moles/volume)2020-08-03 19:00:00* Test Item Value Reference Range Interpretation Comments Hemoglobin (test code = 02986-4) 12.9 g/dL 12.0-16.0 [facility] HospitalAutomated blood hematocrit (volume fraction)2020-08-03 19:00:00* Test Item Value Reference Range Interpretation Comments Hematocrit (test code = 4544-3) 37.4 % 34.2-44.1 [facility] HospitalAutomated erythrocyte mean corpuscular [id number] 19:00:00* Test Item Value Reference Range Interpretation Comments Mean Corpuscular Volume (test code = 787-2) 84.4 81-99 [facility] HospitalAutomated erythrocyte mean corpuscular hemoglobin (mass per erythrocyte)2020-08-03 19:00:00* Test Item Value Reference Range Interpretation Comments Mean Corpuscular Hemoglobin (test code = 785-6) 29.1 pg 28-32 [facility] HospitalAutomated erythrocyte mean corpuscular hemoglobin concentration measurement (mass/volume)2020-08-03 19:00:00* Test Item Value Reference Range Interpretation Comments Mean Corpuscular Hemoglobin Concent (test code = 786-4) 34.5 g/dL 31-35 [facility] HospitalRDW IwvYd-Xzf4620-28-18 19:00:00* Test Item Value Reference Range Interpretation Comments Red Cell Distribution Width (test code = 04266-3) 12.7 % 11.7 -14.4 [facility] HospitalAutomated blood platelet count (count/volume)2020-08-03 19:00:00* Test Item Value Reference Range Interpretation Comments Platelet Count (test code = 777-3) 420 10*3/uL 140-360 [facility] HospitalAutomated blood segmented neutrophil count as percentage of total xzjfmcedhl2610-74-31 19:00:00* Test Item Value Reference Range Interpretation Comments Neutrophils (%) (Auto) (test code = 30149-6) 65.2 % 38.7-80.0 [facility] HospitalAutomated blood lymphocyte count as percentage ot total anrjfqvpuj9771-56-36 19:00:00* Test Item Value Reference Range Interpretation Comments Lymphocytes (%) (Auto) (test code = 736-9) 25.3 % 18.0-39.1 [facility] HospitalAutomated blood monocyte count as percentage of total ivtjwqayig4936-40-34 19:00:00* Test Item Value Reference Range Interpretation Comments Monocytes (%) (Auto) (test code = 5905-5) 6.4 % 4.4-11.3 [facility] HospitalAutomated blood eosinophil count as percentage of total uofttkuahx3663-53-15 19:00:00* Test Item Value Reference Range Interpretation Comments Eosinophils (%) (Auto) (test code = 713-8) 2.4 % 0.0-6.0 [facility] HospitalAutomated blood basophil count as percentage of total tkhhymlczl9985-98-43 19:00:00* Test Item Value Reference Range Interpretation Comments Basophils (%) (Auto) (test code = 706-2) 0.3 % 0.0-1.0 [facility] HospitalFluoroscopic procedure less than one hour vlelblix0746-28-82 19:00:00* Test Item Value Reference Range Interpretation Comments IM GRANULOCYTES % (test code = IM GRANULOCYTES %) 0.4 % 0.0- 1.0 [facility] HospitalAutomated blood neutrophil count 2020-08-03 19:00:00* Test Item Value Reference Range Interpretation Comments Neutrophils # (Auto) (test code = 751-8) 6.5 2.1-6.9 [facility] HospitalBlood lymphocytes count (number/volume) 2020-08-03 19:00:00* Test Item Value Reference Range Interpretation Comments Lymphocytes # (Auto) (test code = 64023-2) 2.5 1.0-3.2 [facility] HospitalBlood monocytes automated count (number/volume)2020-08-03 19:00:00* Test Item Value Reference Range Interpretation Comments Monocytes # (Auto) (test code = 742-7) 0.6 0.2-0.8 [facility] HospitalAutomated blood eosinophil count 2020-08-03 19:00:00* Test Item Value Reference Range Interpretation Comments Eosinophils # (Auto) (test code = 711-2) 0.2 0.0-0.4 [facility] HospitalAutomated blood basophil count (count/volume)2020-08-03 19:00:00* Test Item Value Reference Range Interpretation Comments Basophils # (Auto) (test code = 704-7) 0.0 0.0-0.1 [facility] HospitalFluoroscopic procedure less than one hour wjwgoinu4432-17-95 19:00:00* Test Item Value Reference Range Interpretation Comments Absolute Immature Granulocyte (auto (vale t code = Absolute Immature Granulocyte (auto) 0.04 10*3/uL 0-0.1 [facility] HospitalProthrombin time (PT) in platelet poor plasma by coagulation lwntf0518-01-42 19:00:00* Test Item Value Reference Range Interpretation Comments Prothrombin Time (test code = 5902-2) 12.8 s 11.9-14.5 [facility] HospitalINR in Platelet poor plasma by Coagulation vhdaj3478-32-12 19:00:00* Test Item Value Reference Range Interpretation Comments Prothromb Time International Ratio (test code = 6301-6) 0.92 Oral Anticoagulant Therapy INR Values:1. Low Intensity Therapy 1.5 - 2.02 . Moderate Intensity Therapy 2.0 - 3.03. High Intensity Therapy(1) 2.5 - 3. 54. High Intensity Therapy(2) 3.0 - 4.05. Panic Value INR > 5.0 [facility] HospitalActivated partial thromboplastin time (aPTT) in platelet poor plasma by coagulation aacln7387-70-47 19:00:00* Test Item Value Reference Range Interpretation Comments Activated Partial Thromboplast Time (test code = 63243-8) 29.7 s 23.8-35.5 [facility]erum or plasma sodium measurement (moles/volume)2020-08-03 19:00:00* Test Item Value Reference Range Interpretation Comments Sodium Level (test code = 2951-2) 140 mmol/L 136-145 [facility] Hospitalerum or plasma chloride measurement (moles/volume)2020-08-03 19:00:00* Test Item Value Reference Range Interpretation Comments Chloride Level (test code = 2075-0) 98 mmol/L 98-107 [facility] Hospitalerum or plasma carbon dioxide, total measurement (moles/volume)2020-08-03 19:00:00* Test Item Value Reference Range Interpretation Comments Carbon Dioxide Level (test code = 2028-9) 29 mmol/L 22-29 [facility] Hospitalerum or plasma anion ktt2079-77-28 19:00:00* Test Item Value Reference Range Interpretation Comments Anion Gap (test code = 03189-9) 15.7 mmol/L 8-16 [facility] Hospitalerum or plasma urea nitrogen measurement (mass/volume)2020-08-03 19:00:00* Test Item Value Reference Range Interpretation Comments Blood Urea Nitrogen (test code = 3094-0) 14 mg/dL 7- [facility] Hospitalerum or plasma creatinine measurement (mass/volume)2020-08-03 19:00:00* Test Item Value Reference Range Interpretation Comments Creatinine (test code = 2160-0) 0.88 mg/dL 0.57-1.11 [facility] Hospitalerum or plasma urea nitrogen/creatinine mass [id number] 19:00:00* Test Item Value Reference Range Interpretation Comments BUN/Creatinine Ratio (test code = 3097-3) 16 6-25 [facility] HospitalEstimated glomerular filtration rate (GFR) iruilanctjbjl4269-77-35 19:00:00* Test Item Value Reference Range Interpretation Comments Estimat Glomerular Filtration Rate (test code = 195209704) > 60 mL/ min >60 Ranges were taken from the National Kidney Disease Education Program and the [facility] literature.Reference ranges:60 or greater: Zfozdj76-58 ( for 3 consecutive months): Chronic kidney disease 15 or less: Kidney failureUT Southwestern William P. Clements Jr. University HospitalGlucose rycvxzpoksk5819-07-70 19:00:00* Test Item Value Reference Range Interpretation Comments Glucose Level (test code = XZT9272) 104 mg/dL 74-118 [facility] Hospitalerum or plasma calcium measurement (mass/volume)2020-08-03 19:00:00* Test Item Value Reference Range Interpretation Comments Calcium Level (test code = 36483-0) 9.8 mg/dL 8.4-10.2 [facility] Hospitalerum or plasma total bilirubin measurement (mass/volume)2020-08-03 19:00:00* Test Item Value Reference Range Interpretation Comments Total Bilirubin (test code = 1975-2) 0.4 mg/dL 0.2-1.2 [facility] HospitalFluoroscopic procedure less than one hour zexzjgrt5944-43-47 19:00:00* Test Item Value Reference Range Interpretation Comments Aspartate Amino Transf (AST/SGOT) (test code = Aspartate Amino Transf (AST/SGOT)) 27 [IU]/L 5-34 [facility] Hospitalerum or plasma alanine aminotransferase measurement (enzymatic activity/volume)2020-08-03 19:00:00* Test Item Value Reference Range Interpretation Comments Alanine Aminotransferase (ALT/SGPT) (test code = 1742-6) 28 [IU]/L 0-55 [facility] Hospitalerum or plasma protein measurement (mass/volume)2020-08-03 19:00:00* Test Item Value Reference Range Interpretation Comments Total Protein (test code = 2885-2) 9.3 g/dL 6.5-8.1 [facility] Hospitalerum or plasma albumin measurement (mass/volume)2020-08-03 19:00:00* Test Item Value Reference Range Interpretation Comments Albumin (test code = 1751-7) 4.6 g/dL 3.5-5.0 [facility] HospitalPlasma globulin measurement (mass/volume) 2020-08-03 19:00:00* Test Item Value Reference Range Interpretation Comments Globulin (test code = 81870-6) 4.7 g/dL 2.3-3.5 [facility] Hospitalerum or plasma albumin/globulin mass [id number] 19:00:00* Test Item Value Reference Range Interpretation Comments Albumin/Globulin Ratio (test code = 1759-0) 1.0 0.8-2.0 [facility] Hospitalerum or plasma alkaline phosphatase measurement (enzymatic activity/volume)2020-08-03 19:00:00* Test Item Value Reference Range Interpretation Comments Alkaline Phosphatase (test code = 6768-6) 122 [IU]/L 40-150 [facility] HospitalBNP Ssb-vFws9029-91-18 19:00:00* Test Item Value Reference Range Interpretation Comments B-Type Natriuretic Peptide (test code = 19089-7) 14.9 pg/mL 0-100 [facility] Hospitalerum or plasma creatine kinase measurement (enzymatic activity/volume)2020-08-03 19:00:00* Test Item Value Reference Range Interpretation Comments Creatine Kinase (test code = 2157-6) 159 [IU]/L 29-168 [facility] Hospitalerum or plasma creatine kinase MB measurement (mass/volume)2020-08-03 19:00:00* Test Item Value Reference Range Interpretation Comments Creatine Kinase MB (test code = 51490-4) 1.20 ng/mL 0-5.0 [facility] HospitalTroponin I measurement by highly sensitive enzyme cjwdxfvhgwm4850-83-87 19:00:00* Test Item Value Reference Range Interpretation Comments Troponin I (test code = 88262-5) < 0.001 ng/mL 0-0.300 [facility]- [place] ABDOMEN [id number] 08:47:00 Name: EMMANUELLE SHUKLA [facility] : 1955 Age/S: 64 / F [address] [facility]: [id number] Loc: [place] [address] Phys: Berry Mason MD Acct: [id number] Di s Date: Status: REG CLI PHONE #: Exam Date: 05/02/2020 0804 FAX #: Reason: R94.5 EXAMS: CPT CODE: [id number] [place] ABDOMEN CO MPLETE 80808 HISTORY: R94.5. COMPARISON: None available. Location: [facility]. The liver is hyperechogenic demonstrating patchy fibrofatty infiltration which limited evaluation for intrahepatic mass however no discrete lesions. Mil d hepatomegaly at 18.5 cm in length. No intra or extrahepatic bili aida ductal dilatation. CBD is normal at 2.6 mm. Main portal vein is patent with hepatopedal flow and normal spectral waveform. Gallbla dder is without gallstones. No pericholecystic fluid or wall thickening. N o ascites. Both kidneys are free from hydronephrosis and calyceal stones. Normal echogenicity and texture. Right kidney measured 11.4 cm in length. Left kidney measured 11 cm in length. Spleen is not enlarged at 13.8 cm in length. Visualized portions of the IVC, aorta and p ancreas are normal however imaged incompletely. IMPRESSION: No gallstones. Fibrofatty infiltrated liver with mild hepatomegaly . Unremarkable spleen and kidneys. at 0847 Reported and sig marc by: Ta Antoine M.D. CC: Cesar Reyes MD; Berry Mason MD Technologist: CORTNEY OLVERA RDMS [facility] Date/Time: 05/02/2020 (0847) t.[email or web address].[email or web address] Orig Print D/T: S: 05/02/2020 (0850) Probe: PAGE 1 Signed Report Serum or plasma sodium measurement (moles/volume)2020-04-13 12:13:00* Test Item Value Reference Range Interpretation Comments Sodium Level (test code = 2951-2) 130 136-145 [facility] potassium [facility] (moles/volume)2020-04-13 12:13:00* Test Item Value Reference Range Interpretation Comments Potassium Level (test code = 2823-3) 3.7 3.5-5.1 [facility] chloride measurement (moles/volume)2020-04-13 12:13:00* Test Item Value Reference Range Interpretation Comments Chloride Level (test code = 2075-0) 98 98-107 [facility] plasma carbon dioxide, total measurement (moles/volume)2020-04-13 12:13:00* Test Item Value Reference Range Interpretation Comments Carbon Dioxide Level (test code = 2028-9) 19 22-29 [facility] or plasma anion auu9397-47-24 12:13:00* Test Item Value Reference Range Interpretation Comments Anion Gap (test code = 20030-0) 16.7 8-16 [facility] plasma urea nitrogen measurement (mass/volume)2020-04-13 12:13:00* Test Item Value Reference Range Interpretation Comments Blood Urea Nitrogen (test code = 3094-0) < 5 - [facility] creatinine measurement (mass/volume)2020-04-13 12:13:00* Test Item Value Reference Range Interpretation Comments Creatinine (test code = 2160-0) 0.76 0.57-1.11 [facility] plasma urea nitrogen/creatinine mass afwzo5348-78-46 12:13:00* Test Item Value Reference Range Interpretation Comments BUN/Creatinine Ratio (test code = 3097-3) 7 6- [facility] HospitalEstimated glomerular filtration rate (GFR) duxcqvorpncxy6609-60-18 12:13:00* Test Item Value Reference Range Interpretation Comments Estimat Glomerular Filtration Rate (test code = 275161494) > 60 >60 Ranges were taken from the National Kidney Disease Education Program and the [facility] literature.Reference ranges:60 or greater: Selrwn25-63 ( for 3 consecutive months): Chronic kidney disease 15 or less: Kidney failureCH[facility] CenterGlucose yvgyxpppdpg3719-01-13 12:13:00* Test Item Value Reference Range Interpretation Comments Glucose Level (test code = LJY1409) 116 74-118 [facility] plasma calcium measurement (mass/volume)2020-04-13 12:13:00* Test Item Value Reference Range Interpretation Comments Calcium Level (test code = 27418-2) 9.7 8.4-10.2 [facility] HospitalCHEST SINGLE (PORTABLE)2020-04-13 10:54:00 [facility] [address] [address] Patient Name: EMMANUELLE SHUKLA MR #: [id number] : 1955 Age/Sex: 64/F Req #: [id number] Adm Physician: CAMILLA MARTINEZ MD Ordered by: SHAUN SMITH MD Report #: [id number] Location: [facility] Room/Bed: [place] [address] Procedure: [id number] DX/CHEST SINGLE (P ORTABLE) Exam Date: 04/13/20 [...] on 04/13/2020 10:56 AM Dictated By: RICK ROJAS MD [facility] Signed By: RICK ROJAS MD on 04/13/20 105 Transcribed By: HELEN on 105 COPY TO: SHAUN SMITH MD Serum or plasma thyrotropin measurement by detection limit <= 0.005 miu/l (units/volume)2020-04-13 05:08:00 * Test Item Value Reference Range Interpretation Comments Thyroid Stimulating Hormone (TSH) (test code = 37362-1) 0.916 0.350-4.940 [facility] or plasma thyrotropin measurement by detection limit <= 0.005 miu/l (units/volume)2020-04-13 04:08:00* Test Item Value Reference Range Interpretation Comments Thyroid Stimulating Hormone (TSH) (test code = 12624-8) 0.916 0.350-4.940 [facility] HospitalFluoroscopic procedure less than one hour ojsoqted6068-71-32 23:59:00* Test Item Value Reference Range Interpretation Comments [...] from individuals suspected of COVID-[facility]. This test has not been Food [...] under 564(g) of the ACT.Testing performed by [id number] [place], [place] [address]Fluoroscopic procedure less than one hour xmtnqzrt6743-53-86 22:59:00* Test Item Value Reference Range Interpretation [...] from individuals suspected of COVID-19 [facility]. This test has not been Food [...] under 564(g) of the ACT.Testing performed by [address] (PORT[address])2020-04-12 22:01:[address] [address] Patient Name: EMMANUELLE SHUKLA MR #: [id number] : 1955 Age/Sex: 64/F Req #: [id number] Adm Physician: Ordered by: EDU HERNANDEZ MD Report #: [id number] Location: [facility]/Bed: Procedure: [id number] DX/CHEST SINGLE (PORTABLE) Exam Date: 04/12/20 Exam [...] to atelectasis or pneumonia. Signed by: Nicko youngblood, DO on 04/12/2020 10:02 PM Dictated By: NICKO MACEDO DO Electronic ally Signed By: NICKO MACEDO DO on 04/12/202201 Transcribed By: HELEN on 04/12/202201 COPY TO: EDU HERNANDEZ MD Urine color tgegdlhwcznti0765-81-22 21:45:00* Test Item Value Reference Range Interpretation Comments Urine Color (test code = 5778-6) STRAW YELLOW [facility] HospitalUrine prspolu7616-91-52 21:45:00* Test Item Value Reference Range Interpretation Comments Urine Clarity (test code = 39173-9) CLEAR CLEAR [facility]pecific gravity of Urine by Test strip 2020-04-12 21:45:00* Test Item Value Reference Range Interpretation Comments Urine Specific Norris (test code = 5811-5) 1.015 1.010-1.02 5 [facility] HospitalUrine pH measurement by automated test bssze2724-54-31 21:45:00* Test Item Value Reference Range Interpretation Comments Urine pH (test code = 38503-1) 7.5 5-7 [facility] HospitalUrine leukocyte esterase detection by fupymzwb9982-60-96 21:45:00* Test Item Value Reference Range Interpretation Comments Urine Leukocyte Esterase (test code = 5799-2) NEGATIVE NEGATIVE [facility] HospitalUrine nitrite lqzfkrmyb5571-95-70 21:45:00* Test Item Value Reference Range Interpretation Comments Urine Nitrite (test code = 39303-4) NEGATIVE NEGATIVE [facility] HospitalUrine protein measurement by test strip (mass/volume)2020-04-12 21:45:00* Test Item Value Reference Range Interpretation Comments Urine Protein (test code = 5804-0) NEGATIVE NEGATIVE [facility] HospitalUrine glucose dvegqsrmn5465-23-90 21:45:00* Test Item Value Reference Range Interpretation Comments Urine Glucose (UA) (test code = 2349-9) NEGATIVE NEGATIVE [facility] HospitalUrine ketones detection by automated test pifgd9309-60-36 21:45:00* Test Item Value Reference Range Interpretation Comments Urine Ketones (test code = 04385-5) 1+ NEGATIVE [facility] HospitalUrine urobilinogen measurement by test strip (mass/volume)2020-04-12 21:45:00* Test Item Value Reference Range Interpretation Comments Urine Urobilinogen (test code = 23815-6) 0.2 0.2-1 [facility] HospitalUrine total bilirubin measurement (mass/volume)2020-04-12 21:45:00* Test Item Value Reference Range Interpretation Comments Urine Bilirubin (test code = 1978-6) NEGATIVE NEGATIVE [facility] HospitalUrine erythrocytes ipktdbecp3308-42-85 21:45:00* Test Item Value Reference Range Interpretation Comments Urine Blood (test code = 15890-6) NEGATIVE NEGATIVE [facility] HospitalAutomated urine sediment leukocyte count by microscopy (number/high power field)2020-04-12 21:45:00* Test Item Value Reference Range Interpretation Comments Urine WBC (test code = 5821-4) 0-5 0-5 [facility] HospitalErythrocytes detection in urine sediment by light ixgzphmpyt1734-43-56 21:45:00* Test Item Value Reference Range Interpretation Comments Urine RBC (test code = 88600-5) 0-5 0-5 [facility] HospitalBacteria detection in urine sediment by light miwuqroyak4553-62-47 21:45:00* Test Item Value Reference Range Interpretation Comments Urine Bacteria (test code = 55499-1) RARE NONE [facility] HospitalEpithelial cells detection in urine sediment by light ltvuicxbum1635-08-84 21:45:00* Test Item Value Reference Range Interpretation Comments Urine Epithelial Cells (test code = 82096-0) FEW NONE [facility] HospitalCT BRAIN IA6174-95-76 20:50:00 [facility] [address] [place], [place] [id number] Patient Name: EMMANUELLE SHUKLA MR #: [id number] : 1955 Age/Sex: 64/F [facility] #: [id number] Req #: [id number] Adm Physician: Ordered by: EDU HERNANDEZ MD Report #: [id number] Location: [facility]/Bed: Procedure: [id number] CT/CT BRA IN WO Exam Date: 04/12/20 [...] Count (test code = 6690-2) 7.92 4.8-10.8 [facility] HospitalBlood erythrocytes automated count (number/volume)2020-04-12 19:57:00* Test Item Value Reference Range Interpretation Comments Red Blood Count (test code = 789-8) 4.19 3.6-5.1 [facility] HospitalBlood hemoglobin measurement (moles/volume)2020-04-12 19:57:00* Test Item Value Reference Range Interpretation Comments Hemoglobin (test code = 81647-3) 12.1 12.0-16.0 [facility] HospitalAutomated blood hematocrit (volume fraction)2020-04-12 19:57:00* Test Item Value Reference Range Interpretation Comments Hematocrit (test code = 4544-3) 32.6 34.2-44.1 [facility] HospitalAutomated erythrocyte mean corpuscular ptxmjz1278-78-50 19:57:00* Test Item Value Reference Range Interpretation Comments Mean Corpuscular Volume (test code = 787-2) 77.8 81-99 [facility] HospitalAutomated erythrocyte mean corpuscular hemoglobin (mass per erythrocyte)2020-04-12 19:57:00* Test Item Value Reference Range Interpretation Comments Mean Corpuscular Hemoglobin (test code = 785-6) 28.9 28-32 [facility] HospitalAutomated erythrocyte mean corpuscular hemoglobin concentration measurement (mass/volume)2020-04-12 19:57:00* Test Item Value Reference Range Interpretation Comments Mean Corpuscular Hemoglobin Concent (test code = 786-4) 37.1 31-35 [facility] HospitalRDW IqiSs-Ima9843-95-28 19:57:00* Test Item Value Reference Range Interpretation Comments Red Cell Distribution Width (test code = 23806-3) 12.4 11.7 -14.4 [facility] HospitalAutomated blood platelet count (count/volume)2020-04-12 19:57:00* Test Item Value Reference Range Interpretation Comments Platelet Count (test code = 777-3) 373 140-360 [facility] HospitalAutomated blood segmented neutrophil count as percentage of total exjrmajyxo9771-72-86 19:57:00* Test Item Value Reference Range Interpretation Comments Neutrophils (%) (Auto) (test code = 48568-2) 71.4 38.7-80.0 [facility] blood lymphocyte count as percentage ot total mscsybokdi0914-51-36 19:57:00* Test Item Value Reference Range Interpretation Comments Lymphocytes (%) (Auto) (test code = 736-9) 16.8 18.0-39.1 [facility] HospitalAutomated blood monocyte count as percentage of total iriezbkgpd6759-64-65 19:57:00* Test Item Value Reference Range Interpretation Comments Monocytes (%) (Auto) (test code = 5905-5) 9.8 4.4-11.3 [facility] HospitalAutomated blood eosinophil count as percentage of total mkobrslurl0046-32-47 19:57:00* Test Item Value Reference Range Interpretation Comments Eosinophils (%) (Auto) (test code = 713-8) 0.8 0.0-6.0 [facility] HospitalAutomated blood basophil count as percentage of total cbhhdsuqxk3123-39-69 19:57:00* Test Item Value Reference Range Interpretation Comments Basophils (%) (Auto) (test code = 706-2) 0.4 0.0-1.0 [facility] HospitalFluoroscopic procedure less than one hour kkmtkugk1922-85-80 19:57:00* Test Item Value Reference Range Interpretation Comments IM GRANULOCYTES % (test code = IM GRANULOCYTES %) 0.8 0.0- 1.0 [facility] HospitalAutomated blood neutrophil count 2020-04-12 19:57:00* Test Item Value Reference Range Interpretation Comments Neutrophils # (Auto) (test code = 751-8) 5.7 2.1-6.9 [facility] HospitalBlood lymphocytes count (number/volume) 2020-04-12 19:57:00* Test Item Value Reference Range Interpretation Comments Lymphocytes # (Auto) (test code = 90686-3) 1.3 1.0-3.2 [facility] HospitalBlood monocytes automated count (number/volume)2020-04-12 19:57:00* Test Item Value Reference Range Interpretation Comments Monocytes # (Auto) (test code = 742-7) 0.8 0.2-0.8 [facility] HospitalAutomated blood eosinophil count 2020-04-12 19:57:00* Test Item Value Reference Range Interpretation Comments Eosinophils # (Auto) (test code = 711-2) 0.1 0.0-0.4 [facility] HospitalAutomated blood basophil count (count/volume)2020-04-12 19:57:00* Test Item Value Reference Range Interpretation Comments Basophils # (Auto) (test code = 704-7) 0.0 0.0-0.1 [facility] HospitalFluoroscopic procedure less than one hour zzeiapsn8284-51-13 19:57:00* Test Item Value Reference Range Interpretation Comments Absolute Immature Granulocyte (auto (vale t code = Absolute Immature Granulocyte (auto) 0.06 0-0.1 [facility]er[facility] plasma total bilirubin measurement (mass/volume)2020-04-12 19:57:00* Test Item Value Reference Range Interpretation Comments Total Bilirubin (test code = 1975-2) 0.5 0.2-1.2 [facility] HospitalFluoroscopic procedure less than one hour txftijvs1864-81-51 19:57:00* Test Item Value Reference Range Interpretation Comments Aspartate Amino Transf (AST/SGOT) (test code = Aspartate Amino Transf (AST/SGOT)) 56 5-34 [facility]erum or plasma alanine aminotransferase measurement (enzymatic activity/volume)2020-04-12 19:57:00* Test Item Value Reference Range Interpretation Comments Alanine Aminotransferase (ALT/SGPT) (test code = 1742-6) 64 0-55 [facility]er[facility] or plasma protein measurement (mass/volume)2020-04-12 19:57:00* Test Item Value Reference Range Interpretation Comments Total Protein (test code = 2885-2) 8.1 6.5-8.1 [facility]er[facility] or plasma albumin measurement (mass/volume)2020-04-12 19:57:00* Test Item Value Reference Range Interpretation Comments Albumin (test code = 1751-7) 4.2 3.5-5.0 [facility] HospitalPlasma globulin measurement (mass/volume) 2020-04-12 19:57:00* Test Item Value Reference Range Interpretation Comments Globulin (test code = 93376-1) 3.9 2.3-3.5 [facility]er[facility] or plasma albumin/globulin mass jvdwv1023-13-79 19:57:00* Test Item Value Reference Range Interpretation Comments Albumin/Globulin Ratio (test code = 1759-0) 1.1 0.8-2.0 [facility]er[facility] or plasma alkaline phosphatase measurement (enzymatic activity/volume)2020-04-12 19:57:00* Test Item Value Reference Range Interpretation Comments Alkaline Phosphatase (test code = 6768-6) 91 40-150 [facility]er[facility] or plasma creatine kinase measurement (enzymatic activity/volume)2020-04-12 19:57:00* Test Item Value Reference Range Interpretation Comments Creatine Kinase (test code = 2157-6) 582 29-168 [facility]er[facility] or plasma creatine kinase MB measurement (mass/volume)2020-04-12 19:57:00* Test Item Value Reference Range Interpretation Comments Creatine Kinase MB (test code = 21683-9) 4.20 0-5.0 [facility] HospitalTroponin I measurement by highly sensitive enzyme dzhbdeprtlp1625-24-69 19:57:00* Test Item Value Reference Range Interpretation Comments Troponin I (test code = 04406-4) 0.005 0-0.300 [facility] HospitalProthrombin time (PT) in platelet poor plasma by coagulation xqmpn0243-42-91 19:55:00* Test Item Value Reference Range Interpretation Comments Prothrombin Time (test code = 5902-2) 13.4 11.9-14.5 [facility] HospitalINR in Platelet poor plasma by Coagulation wzbpi9540-59-66 19:55:00* Test Item Value Reference Range Interpretation Comments Prothromb Time International Ratio (test code = 6301-6) 0.97 Oral Anticoagulant Therapy INR Values:1. Low Intensity Therapy 1.5 - 2.02 . Moderate Intensity Therapy 2.0 - 3.03. High Intensity Therapy(1) 2.5 - 3. 54. High Intensity Therapy(2) 3.0 - 4.05. Panic Value INR > 5.0 [facility] HospitalActivated partial thromboplastin time (aPTT) in platelet poor plasma by coagulation keomx0341-57-58 19:55:00* Test Item Value Reference Range Interpretation Comments Activated Partial Thromboplast Time (test code = 08243-5) 31.1 23.8-35.5 [facility]
[2020-08-09 23:23] LABS: BASOPHILS # (AUTO) 0.1 (0.0-0.1); BASOPHILS % 0.7 % (0.0-1.0); EOSINOPHILS # (AUTO) 0.3 (0.0-0.4); EOSINOPHILS % 3.3 % (0.0-6.0); HEMATOCRIT 35.3 % (34.2-44.1); HEMOGLOBIN 11.9 g/dL (12.0-16.0); LYMPHOCYTES # (AUTO) 2.1 (1.0-3.2); LYMPHOCYTES % 24.9 % (18.0-39.1); MEAN CORPUSCULAR HEMOGLOBIN 29.4 pg (28-32); MEAN CORPUSCULAR HGB CONC 33.7 g/dL (31-35); MEAN CORPUSCULAR VOLUME 87.2 fL (81-99); MONOCYTES # (AUTO) 0.6 (0.2-0.8); MONOCYTES % 7.4 % (4.4-11.3); NEUTROPHILS # (AUTO) 5.2 (2.1-6.9); NEUTROPHILS % 63.3 % (38.7-80.0); PLATELET COUNT 380 x10e3/uL (140-360); RED BLOOD COUNT 4.05 x10e6/uL (3.6-5.1); RED CELL DISTRIBUTION WIDTH 12.8 % (11.7-14.4)
--- NOTE | 2020-08-09 23:41 | Emergency Department Note ---
History of Present Illnes History of Present Illness Chief Complaint: General Medicine Complaints History of Present Illness This is a 64 year old female complaining of left ear pain and "tingling" pain to left cheek; v/s/s; resp rate and effort are wnl, O2 sat RA 100%; skin warm, dry, color wnl for pt; perrla, hand relay man are equal and strong, smile symmetrical, speech clear, no neuro deficits noted . Historian: Patient Arrival Mode: Car Core Shaper Top Required: Yes Onset (how long ago): hour(s) (6) Location: LEFT EAR/CHEEK Quality: PAIN AND TINGLING Radiation: Reports non-radiation Severity: mild Onset quality: sudden Duration (how long): hour(s) (6) Timing of current episode: constant Progression: unchanged Chronicity: new Context: Denies recent illness, Denies recent surgery Relieving factors: none Exacerbating factors: none Associated symptoms: Reports denies other symptoms Treatments prior to arrival: none Past Medical/Family History Physician Review I have reviewed the patient's past medical and family history. Any updates have been documented here. Past Medical History Recent Fever: No Clinical Suspicion of Infectio: No New/Unexplained Change in Ment: No Past Medical History: Hypertension, Hyperlipedemia Other Medical History: Depression covid april 07 2020 HYPONATREMIA HPYOKALEMIA Past Surgical History: None Social History Smoking Cessation: Never Smoker Counseling Performed: No Alcohol Use: None Any Illegal Drug Use: No Physically hurt or threatened: No Family History Family history of heart diseas: No Other family history HTN Other Any Pre-Existing Lines (PICC,: No Review of Systems Review of Systems Constitutional: Reports no symptoms EENTM: Reports no symptoms Cardiovascular: Reports no symptoms Respiratory: Reports no symptoms Gastrointestinal: Reports no symptoms Genitourinary: Reports no symptoms Musculoskeletal: Reports no symptoms Integumentary: Reports no symptoms Neurological: Reports as per HPI Psychological: Reports no symptoms Endocrine: Reports no symptoms Hematological/Lymphatic: Reports no symptoms Physical Exam Related Data Allergies: Coded Allergies: No Known Allergies (Unverified , 04/12/20) Triage Vital Signs Vital Signs Date Time Temp Pulse Resp B/P (MAP) Pulse Ox O2 Delivery O2 Flow Rate FiO2 08/09/20 22:59 98.5 95 18 143/79 100 Room Air Physical Exam CONSTITUTIONAL Constitutional: Present well-developed, Present well-nourished; Absent distressed HENT HENT: Present normocephalic, Present atraumatic, Present oropharynx clear/moist, Present nose normal HENT L/R: Present left ext ear normal, Present right ext ear normal EYES Eyes: Reports PERRL, Reports conjunctivae normal NECK Neck: Present ROM normal PULMONARY Pulmonary: Present effort normal, Present breath sounds normal CARDIOVASCULAR Cardiovascular: Present regular rhythm, Present heart sounds normal, Present capillary refill normal, Present normal rate GASTROINTESTINAL Abdominal: Present soft, Present nontender, Present bowel sounds normal GENITOURINARY Genitourinary: Present exam deferred SKIN Skin: Present warm, Present dry MUSCULOSKELETAL Musculoskeletal: Present ROM normal NEUROLOGICAL Neurological: Present alert, Present oriented x 3, Present DTRs normal, Present no gross motor or sensory deficits, Present other (NEURO EXAM IS NORMAL AND NON FOCAL); Absent cranial nerve deficit, Absent sensory deficit, Absent abnormal coordination, Absent abnormal gait, Absent weakness PSYCHOLOGICAL Psychological: Present mood/affect normal, Present judgement normal Results Laboratory Result Diagram: 08/09/20 6246 Laboratory Laboratory Tests Test 08/09/20 22:55 White Blood Count 8.22 x10e3/uL (4.8-10.8) Red Blood Count 4.05 x10e6/uL (3.6-5.1) Hemoglobin 11.9 g/dL (12.0-16.0) Hematocrit 35.3 % (34.2-44.1) Mean Corpuscular Volume 87.2 fL (81-99) Mean Corpuscular Hemoglobin 29.4 pg (28-32) Mean Corpuscular Hemoglobin Concent 33.7 g/dL (31-35) Red Cell Distribution Width 12.8 % (11.7-14.4) Platelet Count 380 x10e3/uL (140-360) Neutrophils (%) (Auto) 63.3 % (38.7-80.0) Lymphocytes (%) (Auto) 24.9 % (18.0-39.1) Monocytes (%) (Auto) 7.4 % (4.4-11.3) Eosinophils (%) (Auto) 3.3 % (0.0-6.0) Basophils (%) (Auto) 0.7 % (0.0-1.0) Neutrophils # (Auto) 5.2 (2.1-6.9) Lymphocytes # (Auto) 2.1 (1.0-3.2) Monocytes # (Auto) 0.6 (0.2-0.8) Eosinophils # (Auto) 0.3 (0.0-0.4) Basophils # (Auto) 0.1 (0.0-0.1) Absolute Immature Granulocyte (auto 0.03 x10e3/uL (0-0.1) Sodium Level 139 mmol/L (136-145) Potassium Level 3.5 mmol/L (3.5-5.1) Chloride Level 106 mmol/L (98-107) Carbon Dioxide Level 23 mmol/L (22-29) Anion Gap 13.5 mmol/L (8-16) Blood Urea Nitrogen 13 mg/dL (7-26) Creatinine 0.80 mg/dL (0.57-1.11) Estimat Glomerular Filtration Rate > 60 ML/MIN (60-) BUN/Creatinine Ratio 16 (6-25) Glucose Level 102 mg/dL (74-118) Calcium Level 9.0 mg/dL (8.4-10.2) Total Bilirubin 0.2 mg/dL (0.2-1.2) Aspartate Amino Transf (AST/SGOT) 21 IU/L (5-34) Alanine Aminotransferase (ALT/SGPT) < 6 IU/L (0-55) Alkaline Phosphatase 111 IU/L (40-150) Total Protein 8.3 g/dL (6.5-8.1) Albumin < 0.4 g/dL (3.5-5.0) Globulin 7.9 g/dL (2.3-3.5) Albumin/Globulin Ratio 0.1 (0.8-2.0) Laboratory Tests Test 08/09/20 22:55 White Blood Count 8.22 x10e3/uL (4.8-10.8) Red Blood Count 4.05 x10e6/uL (3.6-5.1) Hemoglobin 11.9 g/dL (12.0-16.0) Hematocrit 35.3 % (34.2-44.1) Mean Corpuscular Volume 87.2 fL (81-99) Mean Corpuscular Hemoglobin 29.4 pg (28-32) Mean Corpuscular Hemoglobin Concent 33.7 g/dL (31-35) Red Cell Distribution Width 12.8 % (11.7-14.4) Platelet Count 380 x10e3/uL (140-360) Neutrophils (%) (Auto) 63.3 % (38.7-80.0) Lymphocytes (%) (Auto) 24.9 % (18.0-39.1) Monocytes (%) (Auto) 7.4 % (4.4-11.3) Eosinophils (%) (Auto) 3.3 % (0.0-6.0) Basophils (%) (Auto) 0.7 % (0.0-1.0) Neutrophils # (Auto) 5.2 (2.1-6.9) Lymphocytes # (Auto) 2.1 (1.0-3.2) Monocytes # (Auto) 0.6 (0.2-0.8) Eosinophils # (Auto) 0.3 (0.0-0.4) Basophils # (Auto) 0.1 (0.0-0.1) Absolute Immature Granulocyte (auto 0.03 x10e3/uL (0-0.1) Imaging Imaging results reviewed: Yes Impressions Procedure: [id number] CT/CT BRAIN WO Exam Date: 08/09/20 Exam Time: 2322 REPORT STATUS: Signed EXAMINATION: Head CT without contrast. HISTORY:Facial tingling. COMPARISON:CT brain from 04/12/2020. TECHNIQUE: Multidetector axial images were obtained from the foramen magnum to the vertex without contrast. The images were reconstructed using brain and bone algorithms. Thin section brain images were reformatted into coronal and sagittal planes. Dose modulation, iterative reconstruction, and/or weight based adjustment of the mA/kV was utilized to reduce the radiation dose to as low as reasonably achievable. Intravenous contrast: None IMAGE QUALITY: Acceptable. FINDINGS: Skull/scalp: No lytic or blastic. lesions. No surgical changes. Parenchyma: Nonspecific few, scattered supratentorial white matter hypodensity are likely related to small vessel ischemic changes. No acute hemorrhage, mass or acute major vascular territorial infarct. Arteries: No density suggestive of thrombosis. Dural sinuses: No abnormal density suggestive of thrombosis. Ventricles: No hydrocephalus or displacement. Extra-axial spaces: No abnormal density. Brain volume: Normal for age. Craniocervical junction: No mass, Chiari malformation, or basilar invagination. Sella: Mildly dilated partial empty sella. Paranasal/mastoid sinuses: Imaged portions unremarkable. IMPRESSION: No acute intracranial abnormality. Mild supratentorial white matter microvascular ischemic changes. Signed by: Dr. Tanna Stewart M.D. on 08/10/2020 12:39 AM Dictated By: TANNA STEWART MD Transcribed By: HELEN on 08/10/2038 COPY TO: EDU HERNANDEZ MD~ Assessment & Plan Medical Decision Making MDM PT WITH PAIN/TINGLING TO LEFT EAR/CHEEK CT BRAIN ,CBC, CMP ORDERED TO EVAL FOR INTRACRANIAL MASS, CVA, ELECTROLYTE ABNORMALITY,ANEMIA Assessment & Plan Final Impression: (1) Ear pain, left (2) Numbness and tingling Depart Disposition: HOME, SELF-CARE Last Vital Signs Date Time Temp Pulse Resp B/P (MAP) Pulse Ox O2 Delivery O2 Flow Rate FiO2 08/09/20 22:59 98.5 95 18 143/79 100 Room Air Home Meds Reported Medications Cetirizine Hcl (CETIRIZINE HCL) 10 Mg Tab.chew, 10 MG PO DAILY 04/13/20 Fluoxetine Hcl (FLUOXETINE HCL) 10 Mg Capsule, 10 MG PO DAILY, #30 CAP 04/12/20 Aspirin (ASPIRIN) 81 Mg Tab.chew 04/12/20 Amlodipine Besylate (AMLODIPINE BESYLATE) 10 Mg Tablet, 10 MG PO DAILY, #30 TAB 04/12/20 EDU HERNANDEZ MD Aug 09, 2020 23:41
[2020-08-09 23:48] LABS: ALANINE AMINOTRANSFERASE < 6 IU/L (0-55); ALBUMIN < 0.4 g/dL (3.5-5.0); ALBUMIN/GLOBULIN RATIO 0.1 (0.8-2.0); ALKALINE PHOSPHATASE 111 IU/L (40-150); ANION GAP 13.5 mmol/L (8-16); BLOOD UREA NITROGEN 13 mg/dL (7-26); BUN/CREATININE RATIO 16 (6-25); CARBON DIOXIDE 23 mmol/L (22-29); CHLORIDE 106 mmol/L (98-107); EST GLOMERULAR FILTRATION RATE > 60 ML/MIN (60-); GLUCOSE 102 mg/dL (74-118); POTASSIUM 3.5 mmol/L (3.5-5.1); SODIUM 139 mmol/L (136-145)
--- NOTE | 2020-08-10 00:42 | Diagnostic Imaging Report ---
EXAMINATION: Head CT without contrast. HISTORY:Facial tingling. COMPARISON:CT brain from 04/12/2020. TECHNIQUE: Multidetector axial images were obtained from the foramen magnum to the vertex without contrast. The images were reconstructed using brain and bone algorithms. Thin section brain images were reformatted into coronal and sagittal planes. Dose modulation, iterative reconstruction, and/or weight based adjustment of the mA/kV was utilized to reduce the radiation dose to as low as reasonably achievable. Intravenous contrast: None IMAGE QUALITY: Acceptable. FINDINGS: Skull/scalp: No lytic or blastic. lesions. No surgical changes. Parenchyma: Nonspecific few, scattered supratentorial white matter hypodensity are likely related to small vessel ischemic changes. No acute hemorrhage, mass or acute major vascular territorial infarct. Arteries: No density suggestive of thrombosis. Dural sinuses: No abnormal density suggestive of thrombosis. Ventricles: No hydrocephalus or displacement. Extra-axial spaces: No abnormal density. Brain volume: Normal for age. Craniocervical junction: No mass, Chiari malformation, or basilar invagination. Sella: Mildly dilated partial empty sella. Paranasal/mastoid sinuses: Imaged portions unremarkable. IMPRESSION: No acute intracranial abnormality. Mild supratentorial white matter microvascular ischemic changes. Signed by: Dr. Tanna Matos M.D. on 08/10/2020 12:39 AM
[2020-08-10 01:06] VITALS: BP 135/76
== END 2020-08-10 01:07 | disposition home or self-care (01) ==
LOC: ER 22:30
DX: H92.02 Otalgia, left ear (principal); R20.2 Paresthesia of skin; I10 Essential (primary) hypertension; E78.5 Hyperlipidemia, unspecified; F32.9 Major depressive disorder, single episode, unspecified
CPT/HCPCS: 36415; 70450; 80053; 85025; 99284